=== PATIENT | male | born 1955 | race Caucasian/White ===

== ENCOUNTER → 2023-10-26 06:20 | Outpatient (REF) | payer MEDICARE, OTHER, SELFPAY ==
[2023-10-26 10:04] LABS: % Basophils 0.7 % (0-2); % Eosinophils 6.2 % (0-6); % Immature Granulocytes 0.1 % (0-0.5); % Lymphocytes 25.8 % (20.5-51.1); % Monocytes 11.4 % (1.7-9.3); % Neutrophils 55.8 % (42.2-75.2); Absolute Basophils 0.1 10^3/uL (0-0.2); Absolute Eosinophils 0.5 10^3/uL (0-0.7); Absolute Lymphocytes 1.9 10^3/uL (1.2-3.4); Absolute Monocytes 0.8 10^3/uL (0.1-0.6); Hematocrit 40.6 % (39.0-52.0); Hemoglobin 14.1 g/dL (13.0-18.0); Mean Corp Hgb Conc. 34.7 g/dL (33.0-37.0); Mean Corpuscular Hgb 36.2 pg (27.0-31.0); Mean Corpuscular Volume 104.4 fL (80.0-94.0); Mean Platelet Volume 10.8 fL (7.4-10.4); Nucleated Red Blood Cells % 0 % (-); Platelet Count 171 10^3/uL (130-400); Red Blood Cell Count 3.89 10^6/uL (4.70-6.10); Red Cell Dist. Width 13.5 % (11.5-14.5); White Blood Cell Count 7.2 10^3/uL (4.8-10.8)
[2023-10-26 10:13] LABS: ALT (SGPT) 46 U/L (0-50); AST (SGOT) 54 U/L (17-59); Albumin 2.9 g/dl (3.5-5.0); Alkaline Phosphatase 69 U/L (38-126); Blood Urea Nitrogen 18 mg/dl (9-20); Calcium 8.3 mg/dl (8.4-10.2); Carbon Dioxide 27 mmol/L (22-30); Chloride 102 mmol/L (98-107); Glucose 77 mg/dl (70-99); Potassium 4.8 mmol/L (3.5-5.1); Sodium 130 mmol/L (135-145); Total Bilirubin 0.8 mg/dl (0.2-1.3); Total Protein 5.4 g/dl (6.3-8.2); eGFR > 60.00
[2023-10-26 10:47] LABS: TSH Reflex To Free T4 6.37 uIU/ml (0.47-4.68)
[2023-10-26 11:01] LABS: Protein/creatinine Ratio 0.1; Urine Protein 7 mg/dl
[2023-10-26 11:16] LABS: Free T4 1.09 ng/dl (0.78-2.19)
== END ==
LOC: HWLAB 06:20
PROVIDERS: ATTENDING PHYSICIAN Internal Medicine Hematology & Oncology; FAMILY PHYSICIAN Internal Medicine
DX: C64.2 Malignant neoplasm of left kidney, except renal pelvis (principal); C78.80 Secondary malignant neoplasm of unspecified digestive organ; G90.09 Other idiopathic peripheral autonomic neuropathy; E11.9 Type 2 diabetes mellitus without complications
CPT/HCPCS: 36415; 80053; 82570; 84156; 84439; 84443; 85025

== ENCOUNTER → 2023-11-23 10:22 | Outpatient (REF) | payer MEDICARE, OTHER, SELFPAY ==
[2023-11-23 13:43] LABS: % Basophils 0.4 % (0-2); % Eosinophils 1.4 % (0-6); % Immature Granulocytes 0.5 % (0-0.5); % Lymphocytes 9.7 % (20.5-51.1); % Monocytes 11.6 % (1.7-9.3); % Neutrophils 76.4 % (42.2-75.2); Absolute Eosinophils 0.1 10^3/uL (0-0.7); Absolute Immature Granulocytes 0.1 10^3/uL (0-0.05); Absolute Monocytes 1.2 10^3/uL (0.1-0.6); Absolute Neutrophils 7.6 10^3/uL (1.4-6.5); Hematocrit 36.2 % (39.0-52.0); Hemoglobin 12.8 g/dL (13.0-18.0); Mean Corp Hgb Conc. 35.4 g/dL (33.0-37.0); Mean Corpuscular Hgb 35.4 pg (27.0-31.0); Mean Platelet Volume 9.4 fL (7.4-10.4); Nucleated Red Blood Cells % 0 % (-); Platelet Count 294 10^3/uL (130-400); Red Blood Cell Count 3.62 10^6/uL (4.70-6.10); Red Cell Dist. Width 13.1 % (11.5-14.5); White Blood Cell Count 9.9 10^3/uL (4.8-10.8)
[2023-11-23 13:54] LABS: ALT (SGPT) 68 U/L (0-50); AST (SGOT) 87 U/L (17-59); Albumin 2.4 g/dl (3.5-5.0); Alkaline Phosphatase 95 U/L (38-126); Blood Urea Nitrogen 15 mg/dl (9-20); Calcium 7.9 mg/dl (8.4-10.2); Carbon Dioxide 27 mmol/L (22-30); Chloride 98 mmol/L (98-107); Glucose 86 mg/dl (70-99); Potassium 4.5 mmol/L (3.5-5.1); Sodium 127 mmol/L (135-145); Total Bilirubin 0.9 mg/dl (0.2-1.3); Total Protein 5.2 g/dl (6.3-8.2); eGFR > 60.00
[2023-11-23 14:27] LABS: TSH Reflex To Free T4 3.07 uIU/ml (0.47-4.68)
[2023-11-23 14:30] LABS: Protein/creatinine Ratio 0.2; Urine Protein 11 mg/dl
== END ==
LOC: HWLAB 10:22
PROVIDERS: ATTENDING PHYSICIAN Internal Medicine Hematology & Oncology
DX: C64.2 Malignant neoplasm of left kidney, except renal pelvis (principal); C78.80 Secondary malignant neoplasm of unspecified digestive organ; G90.09 Other idiopathic peripheral autonomic neuropathy; E11.9 Type 2 diabetes mellitus without complications
CPT/HCPCS: 36415; 80053; 82570; 84156; 84443; 85025

== ENCOUNTER → 2023-12-03 07:12 | Outpatient (REF) | payer MEDICARE, OTHER, SELFPAY ==
[2023-12-03 10:04] LABS: % Basophils 0.6 % (0-2); % Eosinophils 2.7 % (0-6); % Immature Granulocytes 0.2 % (0-0.5); % Lymphocytes 19.7 % (20.5-51.1); % Monocytes 9.7 % (1.7-9.3); % Neutrophils 67.1 % (42.2-75.2); Absolute Basophils 0.1 10^3/uL (0-0.2); Absolute Eosinophils 0.2 10^3/uL (0-0.7); Absolute Lymphocytes 1.6 10^3/uL (1.2-3.4); Absolute Monocytes 0.8 10^3/uL (0.1-0.6); Absolute Neutrophils 5.4 10^3/uL (1.4-6.5); Hematocrit 39.7 % (39.0-52.0); Hemoglobin 13.7 g/dL (13.0-18.0); Mean Corp Hgb Conc. 34.5 g/dL (33.0-37.0); Mean Corpuscular Hgb 35.6 pg (27.0-31.0); Mean Corpuscular Volume 103.1 fL (80.0-94.0); Mean Platelet Volume 9.6 fL (7.4-10.4); Nucleated Red Blood Cells % 0 % (-); Platelet Count 378 10^3/uL (130-400); Red Blood Cell Count 3.85 10^6/uL (4.70-6.10); Red Cell Dist. Width 13.7 % (11.5-14.5)
[2023-12-03 10:19] LABS: ALT (SGPT) 60 U/L (0-50); AST (SGOT) 58 U/L (17-59); Albumin 2.8 g/dl (3.5-5.0); Alkaline Phosphatase 90 U/L (38-126); Blood Urea Nitrogen 11 mg/dl (9-20); Calcium 8.5 mg/dl (8.4-10.2); Carbon Dioxide 28 mmol/L (22-30); Chloride 101 mmol/L (98-107); Glucose 101 mg/dl (70-99); Potassium 5.2 mmol/L (3.5-5.1); Sodium 135 mmol/L (135-145); Total Bilirubin 0.5 mg/dl (0.2-1.3); Total Protein 5.7 g/dl (6.3-8.2); eGFR > 60.00
== END ==
LOC: HWLAB 07:12
PROVIDERS: ATTENDING PHYSICIAN Nurse Practitioner Adult Health; FAMILY PHYSICIAN Internal Medicine
DX: C64.2 Malignant neoplasm of left kidney, except renal pelvis (principal); C78.80 Secondary malignant neoplasm of unspecified digestive organ; G90.09 Other idiopathic peripheral autonomic neuropathy
CPT/HCPCS: 36415; 80053; 85025

== ENCOUNTER → 2023-12-21 08:48 | Outpatient (REF) | payer MEDICARE, OTHER, SELFPAY ==
[2023-12-21 12:35] LABS: % Basophils 0.6 % (0-2); % Lymphocytes 26.5 % (20.5-51.1); % Monocytes 10.1 % (1.7-9.3); % Neutrophils 56.8 % (42.2-75.2); Absolute Eosinophils 0.3 10^3/uL (0-0.7); Absolute Lymphocytes 1.3 10^3/uL (1.2-3.4); Absolute Monocytes 0.5 10^3/uL (0.1-0.6); Absolute Neutrophils 2.8 10^3/uL (1.4-6.5); Hematocrit 39.2 % (39.0-52.0); Hemoglobin 13.4 g/dL (13.0-18.0); Mean Corp Hgb Conc. 34.2 g/dL (33.0-37.0); Mean Corpuscular Hgb 35.6 pg (27.0-31.0); Mean Corpuscular Volume 104.3 fL (80.0-94.0); Mean Platelet Volume 11.1 fL (7.4-10.4); Nucleated Red Blood Cells % 0 % (-); Platelet Count 130 10^3/uL (130-400); Red Blood Cell Count 3.76 10^6/uL (4.70-6.10); Red Cell Dist. Width 13.6 % (11.5-14.5); White Blood Cell Count 4.9 10^3/uL (4.8-10.8)
[2023-12-21 12:50] LABS: ALT (SGPT) 39 U/L (0-50); AST (SGOT) 45 U/L (17-59); Albumin 2.5 g/dl (3.5-5.0); Alkaline Phosphatase 68 U/L (38-126); Blood Urea Nitrogen 13 mg/dl (9-20); Calcium 8.4 mg/dl (8.4-10.2); Carbon Dioxide 28 mmol/L (22-30); Chloride 97 mmol/L (98-107); Glucose 91 mg/dl (70-99); Potassium 4.7 mmol/L (3.5-5.1); Sodium 127 mmol/L (135-145); Total Bilirubin 0.6 mg/dl (0.2-1.3); Total Protein 5.1 g/dl (6.3-8.2); eGFR > 60.00
[2023-12-21 13:20] LABS: Protein/creatinine Ratio 0.3; TSH Reflex To Free T4 5.29 uIU/ml (0.47-4.68); Urine Protein 10 mg/dl
[2023-12-21 14:41] LABS: Free T4 0.99 ng/dl (0.78-2.19)
== END ==
LOC: HWLAB 08:48
PROVIDERS: ATTENDING PHYSICIAN Internal Medicine Hematology & Oncology; FAMILY PHYSICIAN Internal Medicine
DX: C64.2 Malignant neoplasm of left kidney, except renal pelvis (principal); C78.80 Secondary malignant neoplasm of unspecified digestive organ; G90.09 Other idiopathic peripheral autonomic neuropathy; E11.9 Type 2 diabetes mellitus without complications
CPT/HCPCS: 36415; 80053; 82570; 84156; 84439; 84443; 85025

== ENCOUNTER → 2024-01-16 07:27 | Outpatient (REF) | payer MEDICARE, OTHER, SELFPAY | LOC: RAD 07:27 | PROVIDERS: ATTENDING PHYSICIAN Internal Medicine Hematology & Oncology; FAMILY PHYSICIAN Internal Medicine | DX: C64.2 Malignant neoplasm of left kidney, except renal pelvis (principal); C78.80 Secondary malignant neoplasm of unspecified digestive organ; G90.09 Other idiopathic peripheral autonomic neuropathy | CPT/HCPCS: 71260; 74177; Q9967 ==

== ENCOUNTER → 2024-01-18 08:19 | Outpatient (REF) | payer MEDICARE, OTHER, SELFPAY ==
[2024-01-18 09:59] LABS: % Basophils 0.7 % (0-2); % Eosinophils 4.1 % (0-6); % Immature Granulocytes 0.2 % (0-0.5); % Monocytes 12.7 % (1.7-9.3); % Neutrophils 54.3 % (42.2-75.2); Absolute Eosinophils 0.3 10^3/uL (0-0.7); Absolute Lymphocytes 1.7 10^3/uL (1.2-3.4); Absolute Monocytes 0.8 10^3/uL (0.1-0.6); Absolute Neutrophils 3.3 10^3/uL (1.4-6.5); Hematocrit 40.9 % (39.0-52.0); Hemoglobin 14.4 g/dL (13.0-18.0); Mean Corp Hgb Conc. 35.2 g/dL (33.0-37.0); Mean Corpuscular Volume 102.3 fL (80.0-94.0); Mean Platelet Volume 10.6 fL (7.4-10.4); Nucleated Red Blood Cells % 0 % (-); Platelet Count 183 10^3/uL (130-400); Red Cell Dist. Width 13.4 % (11.5-14.5)
[2024-01-18 10:06] LABS: Protein/creatinine Ratio 0.4; Urine Protein 11 mg/dl
[2024-01-18 10:10] LABS: ALT (SGPT) 46 U/L (0-50); AST (SGOT) 50 U/L (17-59); Albumin 2.8 g/dl (3.5-5.0); Alkaline Phosphatase 74 U/L (38-126); Blood Urea Nitrogen 12 mg/dl (9-20); Calcium 8.5 mg/dl (8.4-10.2); Carbon Dioxide 28 mmol/L (22-30); Chloride 99 mmol/L (98-107); Glucose 102 mg/dl (70-99); Potassium 4.9 mmol/L (3.5-5.1); Sodium 126 mmol/L (135-145); Total Bilirubin 0.6 mg/dl (0.2-1.3); Total Protein 5.5 g/dl (6.3-8.2); eGFR > 60.00
[2024-01-18 10:41] LABS: TSH Reflex To Free T4 7.38 uIU/ml (0.47-4.68)
[2024-01-18 11:09] LABS: Free T4 1.15 ng/dl (0.78-2.19)
== END ==
LOC: HWLAB 08:19
PROVIDERS: ATTENDING PHYSICIAN Internal Medicine Hematology & Oncology; FAMILY PHYSICIAN Internal Medicine
DX: C64.2 Malignant neoplasm of left kidney, except renal pelvis (principal); C78.80 Secondary malignant neoplasm of unspecified digestive organ; G90.09 Other idiopathic peripheral autonomic neuropathy; E11.9 Type 2 diabetes mellitus without complications
CPT/HCPCS: 36415; 80053; 82570; 84156; 84439; 84443; 85025

== ENCOUNTER → 2024-02-22 07:02 | Outpatient (REF) | payer MEDICARE, OTHER, SELFPAY ==
[2024-02-22 10:42] LABS: ALT (SGPT) 46 U/L (0-50); AST (SGOT) 48 U/L (17-59); Albumin 2.6 g/dl (3.5-5.0); Alkaline Phosphatase 69 U/L (38-126); Blood Urea Nitrogen 21 mg/dl (9-20); Calcium 8.5 mg/dl (8.4-10.2); Carbon Dioxide 28 mmol/L (22-30); Chloride 102 mmol/L (98-107); Glucose 90 mg/dl (70-99); Potassium 4.9 mmol/L (3.5-5.1); Sodium 132 mmol/L (135-145); Total Bilirubin 0.5 mg/dl (0.2-1.3); Total Protein 5.1 g/dl (6.3-8.2); eGFR > 60.00
[2024-02-22 10:53] LABS: TSH Reflex To Free T4 1.57 uIU/ml (0.47-4.68)
[2024-02-22 11:31] LABS: % Basophils 0.8 % (0-2); % Eosinophils 10.2 % (0-6); % Immature Granulocytes 0.2 % (0-0.5); % Lymphocytes 23.1 % (20.5-51.1); % Monocytes 11.6 % (1.7-9.3); % Neutrophils 54.1 % (42.2-75.2); Absolute Basophils 0.1 10^3/uL (0-0.2); Absolute Eosinophils 0.7 10^3/uL (0-0.7); Absolute Lymphocytes 1.5 10^3/uL (1.2-3.4); Absolute Monocytes 0.8 10^3/uL (0.1-0.6); Absolute Neutrophils 3.5 10^3/uL (1.4-6.5); Hematocrit 38.2 % (39.0-52.0); Hemoglobin 13.1 g/dL (13.0-18.0); Mean Corp Hgb Conc. 34.3 g/dL (33.0-37.0); Mean Corpuscular Hgb 35.7 pg (27.0-31.0); Mean Corpuscular Volume 104.1 fL (80.0-94.0); Mean Platelet Volume 10.8 fL (7.4-10.4); Nucleated Red Blood Cells % 0 % (-); Platelet Count 202 10^3/uL (130-400); Red Blood Cell Count 3.67 10^6/uL (4.70-6.10); Red Cell Dist. Width 13.5 % (11.5-14.5); White Blood Cell Count 6.4 10^3/uL (4.8-10.8)
== END ==
LOC: HWLAB 07:02
PROVIDERS: ATTENDING PHYSICIAN Internal Medicine Hematology & Oncology; FAMILY PHYSICIAN Internal Medicine
DX: C64.2 Malignant neoplasm of left kidney, except renal pelvis (principal); C78.80 Secondary malignant neoplasm of unspecified digestive organ; G90.09 Other idiopathic peripheral autonomic neuropathy; E11.9 Type 2 diabetes mellitus without complications
CPT/HCPCS: 36415; 80053; 84443; 85025

== ENCOUNTER → 2024-04-12 07:29 | Outpatient (REF) | payer MEDICARE, OTHER, SELFPAY ==
[2024-04-12 08:58] LABS: % Basophils 0.8 % (0-2); % Eosinophils 4.3 % (0-6); % Immature Granulocytes 0.3 % (0-0.5); % Lymphocytes 20.8 % (20.5-51.1); % Monocytes 13.8 % (1.7-9.3); Absolute Basophils 0.1 10^3/uL (0-0.2); Absolute Eosinophils 0.3 10^3/uL (0-0.7); Absolute Lymphocytes 1.3 10^3/uL (1.2-3.4); Absolute Monocytes 0.8 10^3/uL (0.1-0.6); Absolute Neutrophils 3.6 10^3/uL (1.4-6.5); Hematocrit 32.2 % (39.0-52.0); Mean Corp Hgb Conc. 34.2 g/dL (33.0-37.0); Mean Corpuscular Hgb 36.9 pg (27.0-31.0); Mean Corpuscular Volume 108.1 fL (80.0-94.0); Mean Platelet Volume 10.1 fL (7.4-10.4); Nucleated Red Blood Cells % 0 % (-); Platelet Count 243 10^3/uL (130-400); Red Blood Cell Count 2.98 10^6/uL (4.70-6.10); Red Cell Dist. Width 14.8 % (11.5-14.5)
[2024-04-12 09:28] LABS: ALT (SGPT) 106 U/L (0-50); AST (SGOT) 78 U/L (17-59); Albumin 2.7 g/dl (3.5-5.0); Blood Urea Nitrogen 23 mg/dl (9-20); Calcium 8.5 mg/dl (8.4-10.2); Carbon Dioxide 24 mmol/L (22-30); Glucose 88 mg/dl (70-99); Potassium 5.1 mmol/L (3.5-5.1); Total Bilirubin 0.3 mg/dl (0.2-1.3); Total Cholesterol 88 mg/dl (50-199); Total Protein 4.9 g/dl (6.3-8.2); Triglyceride 75 mg/dl (10-149); Very Low Density Lipoprotein 15 mg/dl (0-30); eGFR > 60.00
[2024-04-12 09:42] LABS: Alkaline Phosphatase 67 U/L (38-126); Chloride 111 mmol/L (98-107); Sodium 139 mmol/L (135-145)
[2024-04-12 09:51] LABS: Microalbumin, Random Urine < 0.6 mg/dl (0.6-1.7)
[2024-04-12 09:57] LABS: TSH 2.02 uIU/ml (0.47-4.68)
[2024-04-12 10:20] LABS: HDL Cholesterol 40 mg/dl; LDL Cholesterol, Calculated 33 mg/dl
[2024-04-12 10:53] LABS: Glycohemoglobin (HgbA1c) 4.9 % (4.0-5.6)
== END ==
LOC: REG 07:29
PROVIDERS: ATTENDING PHYSICIAN Internal Medicine Hematology & Oncology; FAMILY PHYSICIAN Internal Medicine
DX: C64.2 Malignant neoplasm of left kidney, except renal pelvis (principal); C78.80 Secondary malignant neoplasm of unspecified digestive organ; G90.09 Other idiopathic peripheral autonomic neuropathy; E11.22 Type 2 diabetes mellitus with diabetic chronic kidney disease; N18.31 Chronic kidney disease, stage 3a
CPT/HCPCS: 36415; 80053; 80061; 82043; 82570; 83036; 84443; 85025

== ENCOUNTER → 2024-05-09 06:40 | Outpatient (REF) | payer MEDICARE, OTHER, SELFPAY ==
[2024-05-09 09:48] LABS: % Basophils 0.7 % (0-2); % Eosinophils 3.8 % (0-6); % Immature Granulocytes 0.1 % (0-0.5); % Lymphocytes 25.5 % (20.5-51.1); % Monocytes 11.7 % (1.7-9.3); % Neutrophils 58.2 % (42.2-75.2); Absolute Basophils 0.1 10^3/uL (0-0.2); Absolute Eosinophils 0.3 10^3/uL (0-0.7); Absolute Lymphocytes 1.7 10^3/uL (1.2-3.4); Absolute Monocytes 0.8 10^3/uL (0.1-0.6); Absolute Neutrophils 3.9 10^3/uL (1.4-6.5); Hematocrit 39.7 % (39.0-52.0); Hemoglobin 13.8 g/dL (13.0-18.0); Mean Corp Hgb Conc. 34.8 g/dL (33.0-37.0); Mean Corpuscular Hgb 36.9 pg (27.0-31.0); Mean Corpuscular Volume 106.1 fL (80.0-94.0); Mean Platelet Volume 10.3 fL (7.4-10.4); Nucleated Red Blood Cells % 0 % (-); Platelet Count 160 10^3/uL (130-400); Red Blood Cell Count 3.74 10^6/uL (4.70-6.10); Red Cell Dist. Width 13.2 % (11.5-14.5); White Blood Cell Count 6.8 10^3/uL (4.8-10.8)
[2024-05-09 10:01] LABS: ALT (SGPT) 57 U/L (0-50); AST (SGOT) 58 U/L (17-59); Albumin 3.2 g/dl (3.5-5.0); Alkaline Phosphatase 82 U/L (38-126); Blood Urea Nitrogen 22 mg/dl (9-20); Calcium 8.5 mg/dl (8.4-10.2); Carbon Dioxide 27 mmol/L (22-30); Chloride 106 mmol/L (98-107); Glucose 104 mg/dl (70-99); Potassium 4.9 mmol/L (3.5-5.1); Sodium 135 mmol/L (135-145); Total Bilirubin 0.6 mg/dl (0.2-1.3); Total Protein 5.7 g/dl (6.3-8.2); eGFR > 60.00
[2024-05-09 10:32] LABS: TSH Reflex To Free T4 5.37 uIU/ml (0.47-4.68)
[2024-05-09 11:00] LABS: Free T4 0.88 ng/dl (0.78-2.19)
== END ==
LOC: HWLAB 06:40
PROVIDERS: ATTENDING PHYSICIAN Internal Medicine Hematology & Oncology; FAMILY PHYSICIAN Internal Medicine
DX: C64.2 Malignant neoplasm of left kidney, except renal pelvis (principal); C78.80 Secondary malignant neoplasm of unspecified digestive organ; G90.09 Other idiopathic peripheral autonomic neuropathy; E11.9 Type 2 diabetes mellitus without complications
CPT/HCPCS: 36415; 80053; 84439; 84443; 85025

== ENCOUNTER → 2024-06-03 10:05 | Outpatient (REF) | payer MEDICARE, OTHER, SELFPAY | LOC: HWRAD 10:05 | PROVIDERS: ATTENDING PHYSICIAN Internal Medicine Hematology & Oncology; FAMILY PHYSICIAN Internal Medicine | DX: C64.2 Malignant neoplasm of left kidney, except renal pelvis (principal); C78.80 Secondary malignant neoplasm of unspecified digestive organ; G90.09 Other idiopathic peripheral autonomic neuropathy | CPT/HCPCS: 71260; 74177; Q9967 ==

== ENCOUNTER → 2024-06-06 09:59 | Outpatient (REF) | payer MEDICARE, OTHER, SELFPAY ==
[2024-06-06 11:29] LABS: % Basophils 0.6 % (0-2); % Eosinophils 3.8 % (0-6); % Immature Granulocytes 0.2 % (0-0.5); % Monocytes 10.8 % (1.7-9.3); % Neutrophils 62.6 % (42.2-75.2); Absolute Eosinophils 0.3 10^3/uL (0-0.7); Absolute Lymphocytes 1.4 10^3/uL (1.2-3.4); Absolute Monocytes 0.7 10^3/uL (0.1-0.6); Absolute Neutrophils 4.1 10^3/uL (1.4-6.5); Hematocrit 34.8 % (39.0-52.0); Hemoglobin 12.1 g/dL (13.0-18.0); Mean Corp Hgb Conc. 34.8 g/dL (33.0-37.0); Mean Corpuscular Hgb 35.7 pg (27.0-31.0); Mean Corpuscular Volume 102.7 fL (80.0-94.0); Mean Platelet Volume 10.1 fL (7.4-10.4); Nucleated Red Blood Cells % 0 % (-); Platelet Count 152 10^3/uL (130-400); Red Blood Cell Count 3.39 10^6/uL (4.70-6.10); Red Cell Dist. Width 13.7 % (11.5-14.5); White Blood Cell Count 6.6 10^3/uL (4.8-10.8)
[2024-06-06 11:48] LABS: ALT (SGPT) 43 U/L (0-50); AST (SGOT) 46 U/L (17-59); Albumin 2.7 g/dl (3.5-5.0); Alkaline Phosphatase 64 U/L (38-126); Blood Urea Nitrogen 22 mg/dl (9-20); Calcium 8.3 mg/dl (8.4-10.2); Carbon Dioxide 25 mmol/L (22-30); Chloride 108 mmol/L (98-107); Glucose 104 mg/dl (70-99); Potassium 4.8 mmol/L (3.5-5.1); Sodium 140 mmol/L (135-145); Total Bilirubin 0.6 mg/dl (0.2-1.3); Total Protein 5.1 g/dl (6.3-8.2); eGFR 59.84
[2024-06-06 12:13] LABS: TSH Reflex To Free T4 2.49 uIU/ml (0.47-4.68)
== END ==
LOC: HWLAB 09:59
PROVIDERS: ATTENDING PHYSICIAN Internal Medicine Hematology & Oncology; FAMILY PHYSICIAN Internal Medicine
DX: C64.2 Malignant neoplasm of left kidney, except renal pelvis (principal); C78.80 Secondary malignant neoplasm of unspecified digestive organ; G90.09 Other idiopathic peripheral autonomic neuropathy; E11.9 Type 2 diabetes mellitus without complications
CPT/HCPCS: 36415; 80053; 84443; 85025

== ENCOUNTER → 2024-07-14 09:43 | Outpatient (REF) | payer MEDICARE, OTHER, SELFPAY ==
[2024-07-14 11:19] LABS: % Basophils 0.6 % (0-2); % Eosinophils 5.2 % (0-6); % Lymphocytes 26.8 % (20.5-51.1); % Monocytes 13.5 % (1.7-9.3); % Neutrophils 53.9 % (42.2-75.2); Absolute Eosinophils 0.3 10^3/uL (0-0.7); Absolute Lymphocytes 1.3 10^3/uL (1.2-3.4); Absolute Monocytes 0.7 10^3/uL (0.1-0.6); Absolute Neutrophils 2.7 10^3/uL (1.4-6.5); Hematocrit 33.6 % (39.0-52.0); Hemoglobin 11.6 g/dL (13.0-18.0); Mean Corp Hgb Conc. 34.5 g/dL (33.0-37.0); Mean Corpuscular Hgb 37.2 pg (27.0-31.0); Mean Corpuscular Volume 107.7 fL (80.0-94.0); Mean Platelet Volume 10.3 fL (7.4-10.4); Nucleated Red Blood Cells % 0 % (-); Platelet Count 197 10^3/uL (130-400); Red Blood Cell Count 3.12 10^6/uL (4.70-6.10); Red Cell Dist. Width 13.8 % (11.5-14.5)
[2024-07-14 11:26] LABS: ALT (SGPT) 46 U/L (0-50); AST (SGOT) 49 U/L (17-59); Albumin 2.8 g/dl (3.5-5.0); Alkaline Phosphatase 57 U/L (38-126); Blood Urea Nitrogen 18 mg/dl (9-20); Calcium 8.6 mg/dl (8.4-10.2); Carbon Dioxide 25 mmol/L (22-30); Chloride 106 mmol/L (98-107); Glucose 109 mg/dl (70-99); Sodium 137 mmol/L (135-145); Total Bilirubin 0.2 mg/dl (0.2-1.3); Total Protein 5.2 g/dl (6.3-8.2); eGFR 59.84
[2024-07-14 12:55] LABS: TSH Reflex To Free T4 3.08 uIU/ml (0.47-4.68)
== END ==
LOC: HWLAB 09:43
PROVIDERS: ATTENDING PHYSICIAN Internal Medicine Hematology & Oncology; FAMILY PHYSICIAN Internal Medicine
DX: C64.2 Malignant neoplasm of left kidney, except renal pelvis (principal); C78.80 Secondary malignant neoplasm of unspecified digestive organ; G90.09 Other idiopathic peripheral autonomic neuropathy; E11.9 Type 2 diabetes mellitus without complications
CPT/HCPCS: 36415; 80053; 84443; 85025

== ENCOUNTER → 2024-08-11 12:24 | Outpatient (REF) | payer MEDICARE, OTHER, SELFPAY ==
[2024-08-11 15:20] LABS: ALT (SGPT) 45 U/L (0-50); AST (SGOT) 49 U/L (17-59); Albumin 2.6 g/dl (3.5-5.0); Alkaline Phosphatase 59 U/L (38-126); Blood Urea Nitrogen 24 mg/dl (9-20); Calcium 8.1 mg/dl (8.4-10.2); Carbon Dioxide 26 mmol/L (22-30); Chloride 105 mmol/L (98-107); Glucose 118 mg/dl (70-99); Potassium 4.8 mmol/L (3.5-5.1); Sodium 137 mmol/L (135-145); Total Bilirubin 0.5 mg/dl (0.2-1.3); eGFR 54.41
[2024-08-11 15:33] LABS: % Basophils 0.6 % (0-2); % Eosinophils 5.4 % (0-6); % Immature Granulocytes 0.3 % (0-0.5); % Lymphocytes 23.1 % (20.5-51.1); % Monocytes 11.7 % (1.7-9.3); % Neutrophils 58.9 % (42.2-75.2); Absolute Eosinophils 0.3 10^3/uL (0-0.7); Absolute Lymphocytes 1.5 10^3/uL (1.2-3.4); Absolute Monocytes 0.7 10^3/uL (0.1-0.6); Absolute Neutrophils 3.7 10^3/uL (1.4-6.5); Hematocrit 36.7 % (39.0-52.0); Hemoglobin 12.2 g/dL (13.0-18.0); Mean Corp Hgb Conc. 33.2 g/dL (33.0-37.0); Mean Corpuscular Hgb 36.5 pg (27.0-31.0); Mean Corpuscular Volume 109.9 fL (80.0-94.0); Mean Platelet Volume 10.7 fL (7.4-10.4); Nucleated Red Blood Cells % 0 % (-); Platelet Count 156 10^3/uL (130-400); Red Blood Cell Count 3.34 10^6/uL (4.70-6.10); Red Cell Dist. Width 13.4 % (11.5-14.5); White Blood Cell Count 6.4 10^3/uL (4.8-10.8)
[2024-08-11 15:53] LABS: TSH Reflex To Free T4 3.02 uIU/ml (0.47-4.68)
[2024-08-11 15:57] LABS: Protein/creatinine Ratio 0.1; Urine Protein 8 mg/dl
== END ==
LOC: HWLAB 12:24
PROVIDERS: ATTENDING PHYSICIAN Internal Medicine Hematology & Oncology; FAMILY PHYSICIAN Internal Medicine
DX: C64.2 Malignant neoplasm of left kidney, except renal pelvis (principal); C78.80 Secondary malignant neoplasm of unspecified digestive organ; G90.09 Other idiopathic peripheral autonomic neuropathy; E11.9 Type 2 diabetes mellitus without complications
CPT/HCPCS: 36415; 80053; 82570; 84156; 84443; 85025

== ENCOUNTER → 2024-09-08 10:11 | Outpatient (REF) | payer MEDICARE, OTHER, SELFPAY ==
[2024-09-08 11:31] LABS: % Basophils 0.5 % (0-2); % Eosinophils 6.5 % (0-6); % Immature Granulocytes 0.2 % (0-0.5); % Lymphocytes 24.1 % (20.5-51.1); % Monocytes 10.9 % (1.7-9.3); % Neutrophils 57.8 % (42.2-75.2); Absolute Eosinophils 0.4 10^3/uL (0-0.7); Absolute Lymphocytes 1.4 10^3/uL (1.2-3.4); Absolute Monocytes 0.6 10^3/uL (0.1-0.6); Absolute Neutrophils 3.4 10^3/uL (1.4-6.5); Hematocrit 37.5 % (39.0-52.0); Hemoglobin 12.5 g/dL (13.0-18.0); Mean Corp Hgb Conc. 33.3 g/dL (33.0-37.0); Mean Corpuscular Hgb 36.2 pg (27.0-31.0); Mean Corpuscular Volume 108.7 fL (80.0-94.0); Mean Platelet Volume 10.2 fL (7.4-10.4); Nucleated Red Blood Cells % 0 % (-); Platelet Count 142 10^3/uL (130-400); Red Blood Cell Count 3.45 10^6/uL (4.70-6.10); White Blood Cell Count 5.9 10^3/uL (4.8-10.8)
[2024-09-08 12:01] LABS: ALT (SGPT) 41 U/L (0-50); AST (SGOT) 44 U/L (17-59); Albumin 2.6 g/dl (3.5-5.0); Alkaline Phosphatase 56 U/L (38-126); Blood Urea Nitrogen 22 mg/dl (9-20); Calcium 8.3 mg/dl (8.4-10.2); Carbon Dioxide 26 mmol/L (22-30); Chloride 105 mmol/L (98-107); Glucose 78 mg/dl (70-99); Potassium 4.6 mmol/L (3.5-5.1); Sodium 135 mmol/L (135-145); Total Bilirubin 0.4 mg/dl (0.2-1.3); eGFR 59.47
[2024-09-08 12:10] LABS: Protein/creatinine Ratio 0.2; Urine Protein 9 mg/dl
[2024-09-08 12:32] LABS: TSH Reflex To Free T4 4.19 uIU/ml (0.47-4.68)
== END ==
LOC: HWLAB 10:11
PROVIDERS: ATTENDING PHYSICIAN Internal Medicine Hematology & Oncology; FAMILY PHYSICIAN Internal Medicine
DX: C64.2 Malignant neoplasm of left kidney, except renal pelvis (principal); C78.80 Secondary malignant neoplasm of unspecified digestive organ; G90.09 Other idiopathic peripheral autonomic neuropathy; E11.9 Type 2 diabetes mellitus without complications
CPT/HCPCS: 36415; 80053; 82570; 84156; 84443; 85025

== ENCOUNTER → 2024-10-04 09:11 | Outpatient (REF) | payer MEDICARE, OTHER, SELFPAY ==
[2024-10-04 10:21] LABS: % Basophils 0.7 % (0-2); % Eosinophils 7.9 % (0-6); % Immature Granulocytes 0.1 % (0-0.5); % Monocytes 12.4 % (1.7-9.3); % Neutrophils 56.9 % (42.2-75.2); Absolute Basophils 0.1 10^3/uL (0-0.2); Absolute Eosinophils 0.5 10^3/uL (0-0.7); Absolute Lymphocytes 1.5 10^3/uL (1.2-3.4); Absolute Monocytes 0.9 10^3/uL (0.1-0.6); Absolute Neutrophils 3.9 10^3/uL (1.4-6.5); Hematocrit 39.6 % (39.0-52.0); Hemoglobin 13.8 g/dL (13.0-18.0); Mean Corp Hgb Conc. 34.8 g/dL (33.0-37.0); Mean Corpuscular Hgb 36.7 pg (27.0-31.0); Mean Corpuscular Volume 105.3 fL (80.0-94.0); Mean Platelet Volume 10.7 fL (7.4-10.4); Nucleated Red Blood Cells % 0 % (-); Platelet Count 176 10^3/uL (130-400); Red Blood Cell Count 3.76 10^6/uL (4.70-6.10); Red Cell Dist. Width 13.1 % (11.5-14.5); White Blood Cell Count 6.9 10^3/uL (4.8-10.8)
[2024-10-04 10:46] LABS: Protein/creatinine Ratio 0.4; Urine Protein 15 mg/dl
[2024-10-04 11:01] LABS: ALT (SGPT) 46 U/L (0-50); AST (SGOT) 49 U/L (17-59); Albumin 2.8 g/dl (3.5-5.0); Alkaline Phosphatase 73 U/L (38-126); Blood Urea Nitrogen 16 mg/dl (9-20); Calcium 8.4 mg/dl (8.4-10.2); Carbon Dioxide 29 mmol/L (22-30); Chloride 103 mmol/L (98-107); Glucose 117 mg/dl (70-99); Potassium 5.1 mmol/L (3.5-5.1); Sodium 137 mmol/L (135-145); Total Bilirubin 0.8 mg/dl (0.2-1.3); Total Protein 5.2 g/dl (6.3-8.2); eGFR 59.47
[2024-10-04 14:03] LABS: TSH Reflex To Free T4 2.92 uIU/ml (0.47-4.68)
== END ==
LOC: REG 09:11
PROVIDERS: ATTENDING PHYSICIAN Internal Medicine Hematology & Oncology; FAMILY PHYSICIAN Internal Medicine
DX: C64.2 Malignant neoplasm of left kidney, except renal pelvis (principal); C78.80 Secondary malignant neoplasm of unspecified digestive organ; G90.09 Other idiopathic peripheral autonomic neuropathy; E11.9 Type 2 diabetes mellitus without complications
CPT/HCPCS: 36415; 80053; 82570; 84156; 84443; 85025

== ENCOUNTER → 2024-10-21 13:26 | Outpatient (REF) | payer MEDICARE, OTHER, SELFPAY | LOC: RAD 13:26 | PROVIDERS: ATTENDING PHYSICIAN Internal Medicine Hematology & Oncology; FAMILY PHYSICIAN Internal Medicine | DX: C64.2 Malignant neoplasm of left kidney, except renal pelvis (principal); C78.80 Secondary malignant neoplasm of unspecified digestive organ; G90.09 Other idiopathic peripheral autonomic neuropathy | CPT/HCPCS: 71260; 74177; Q9967 ==

== ENCOUNTER → 2024-11-04 09:33 | Outpatient (REF) | payer MEDICARE, OTHER, SELFPAY ==
[2024-11-04 12:08] LABS: % Basophils 0.5 % (0-2); % Eosinophils 5.7 % (0-6); % Immature Granulocytes 0.4 % (0-0.5); % Lymphocytes 14.9 % (20.5-51.1); % Neutrophils 66.5 % (42.2-75.2); Absolute Eosinophils 0.5 10^3/uL (0-0.7); Absolute Lymphocytes 1.2 10^3/uL (1.2-3.4); Absolute Neutrophils 5.3 10^3/uL (1.4-6.5); Hematocrit 34.3 % (39.0-52.0); Hemoglobin 11.5 g/dL (13.0-18.0); Mean Corp Hgb Conc. 33.5 g/dL (33.0-37.0); Mean Corpuscular Hgb 35.7 pg (27.0-31.0); Mean Corpuscular Volume 106.5 fL (80.0-94.0); Mean Platelet Volume 10.4 fL (7.4-10.4); Nucleated Red Blood Cells % 0 % (-); Platelet Count 162 10^3/uL (130-400); Red Blood Cell Count 3.22 10^6/uL (4.70-6.10); Red Cell Dist. Width 13.4 % (11.5-14.5); White Blood Cell Count 7.9 10^3/uL (4.8-10.8)
[2024-11-04 12:32] LABS: ALT (SGPT) 37 U/L (0-50); AST (SGOT) 37 U/L (17-59); Albumin 2.3 g/dl (3.5-5.0); Alkaline Phosphatase 61 U/L (38-126); Blood Urea Nitrogen 23 mg/dl (9-20); Calcium 8.2 mg/dl (8.4-10.2); Carbon Dioxide 26 mmol/L (22-30); Chloride 104 mmol/L (98-107); Glucose 115 mg/dl (70-99); Potassium 5.1 mmol/L (3.5-5.1); Sodium 132 mmol/L (135-145); Total Bilirubin 0.4 mg/dl (0.2-1.3); Total Protein 4.4 g/dl (6.3-8.2); eGFR > 60.00
[2024-11-04 12:47] LABS: TSH Reflex To Free T4 4.66 uIU/ml (0.47-4.68)
== END ==
LOC: HWLAB 09:33
PROVIDERS: ATTENDING PHYSICIAN Internal Medicine Hematology & Oncology; FAMILY PHYSICIAN Internal Medicine
DX: C64.2 Malignant neoplasm of left kidney, except renal pelvis (principal); C78.80 Secondary malignant neoplasm of unspecified digestive organ; G90.09 Other idiopathic peripheral autonomic neuropathy; E11.9 Type 2 diabetes mellitus without complications
CPT/HCPCS: 36415; 80053; 84443; 85025

== ENCOUNTER → 2024-11-26 13:41 | Outpatient (REF) | payer MEDICARE, OTHER, SELFPAY | LOC: HWRCS 13:41 | PROVIDERS: ATTENDING PHYSICIAN Internal Medicine Cardiovascular Disease; FAMILY PHYSICIAN Internal Medicine | DX: I51.9 Heart disease, unspecified (principal) | CPT/HCPCS: 93306 ==

== ENCOUNTER → 2024-12-22 09:31 | Outpatient (REF) | payer MEDICARE, OTHER, SELFPAY | LOC: RAD 09:31 | PROVIDERS: ATTENDING PHYSICIAN Internal Medicine Hematology & Oncology; FAMILY PHYSICIAN Internal Medicine | DX: C64.2 Malignant neoplasm of left kidney, except renal pelvis (principal); C78.80 Secondary malignant neoplasm of unspecified digestive organ; G90.09 Other idiopathic peripheral autonomic neuropathy | CPT/HCPCS: 71260; 74177; Q9967 ==

== ENCOUNTER → 2025-01-16 07:18 | Outpatient (REF) | payer MEDICARE, OTHER, SELFPAY ==
[2025-01-16 09:47] LABS: % Basophils 0.6 % (0-2); % Eosinophils 2.3 % (0-6); % Immature Granulocytes 0.2 % (0-0.5); % Lymphocytes 13.8 % (20.5-51.1); % Monocytes 12.5 % (1.7-9.3); % Neutrophils 70.6 % (42.2-75.2); Absolute Basophils 0.1 10^3/uL (0-0.2); Absolute Eosinophils 0.2 10^3/uL (0-0.7); Absolute Lymphocytes 1.4 10^3/uL (1.2-3.4); Absolute Monocytes 1.2 10^3/uL (0.1-0.6); Hematocrit 40.7 % (39.0-52.0); Hemoglobin 13.7 g/dL (13.0-18.0); Mean Corp Hgb Conc. 33.7 g/dL (33.0-37.0); Mean Corpuscular Hgb 33.7 pg (27.0-31.0); Mean Platelet Volume 10.9 fL (7.4-10.4); Nucleated Red Blood Cells % 0 % (-); Platelet Count 191 10^3/uL (130-400); Red Blood Cell Count 4.07 10^6/uL (4.70-6.10); Red Cell Dist. Width 12.3 % (11.5-14.5); White Blood Cell Count 9.9 10^3/uL (4.8-10.8)
[2025-01-16 09:54] LABS: ALT (SGPT) 53 U/L (0-50); AST (SGOT) 39 U/L (17-59); Albumin 3.6 g/dl (3.5-5.0); Alkaline Phosphatase 68 U/L (38-126); Blood Urea Nitrogen 29 mg/dl (9-20); Calcium 9.5 mg/dl (8.4-10.2); Carbon Dioxide 24 mmol/L (22-30); Chloride 109 mmol/L (98-107); Glucose 109 mg/dl (70-99); HDL Cholesterol 34 mg/dl; LDL Cholesterol, Calculated 33 mg/dl; Potassium 5.1 mmol/L (3.5-5.1); Sodium 142 mmol/L (135-145); Total Bilirubin 0.6 mg/dl (0.2-1.3); Total Cholesterol 89 mg/dl (50-199); Total Protein 6.1 g/dl (6.3-8.2); Triglyceride 113 mg/dl (10-149); Very Low Density Lipoprotein 22 mg/dl (0-30); eGFR 54.41
[2025-01-16 10:05] LABS: Microalbumin, Random Urine 3.7 mg/dl (0.6-1.7); Microalbumin/creatinine Ratio 59.6 mg/g
[2025-01-16 10:21] LABS: TSH Reflex To Free T4 8.53 uIU/ml (0.47-4.68)
[2025-01-16 10:50] LABS: Free T4 0.88 ng/dl (0.78-2.19)
[2025-01-16 11:33] LABS: Glycohemoglobin (HgbA1c) 5.3 % (4.0-5.6)
== END ==
LOC: HWLAB 07:18
PROVIDERS: ATTENDING PHYSICIAN Internal Medicine Hematology & Oncology; FAMILY PHYSICIAN Internal Medicine
DX: C64.2 Malignant neoplasm of left kidney, except renal pelvis (principal); C78.80 Secondary malignant neoplasm of unspecified digestive organ; G90.09 Other idiopathic peripheral autonomic neuropathy; E11.22 Type 2 diabetes mellitus with diabetic chronic kidney disease; N18.31 Chronic kidney disease, stage 3a
CPT/HCPCS: 36415; 80053; 80061; 82043; 82570; 83036; 84439; 84443; 85025

== ENCOUNTER → 2025-01-22 09:27 | Outpatient (REF) | payer MEDICARE, OTHER, SELFPAY | LOC: RAD 09:27 | PROVIDERS: ATTENDING PHYSICIAN Internal Medicine Hematology & Oncology; FAMILY PHYSICIAN Internal Medicine | DX: C64.2 Malignant neoplasm of left kidney, except renal pelvis (principal); C78.80 Secondary malignant neoplasm of unspecified digestive organ; G90.09 Other idiopathic peripheral autonomic neuropathy | CPT/HCPCS: 78306; A9503 ==

== ENCOUNTER → 2025-02-20 10:20 | Outpatient (REF) | payer MEDICARE, OTHER, SELFPAY ==
[2025-02-20 12:46] LABS: Hematocrit 42.7 % (39.0-52.0); Hemoglobin 14.8 g/dL (13.0-18.0); Mean Corp Hgb Conc. 34.7 g/dL (33.0-37.0); Mean Corpuscular Hgb 33.6 pg (27.0-31.0); Mean Corpuscular Volume 96.8 fL (80.0-94.0); Red Blood Cell Count 4.41 10^6/uL (4.70-6.10); Red Cell Dist. Width 12.9 % (11.5-14.5); White Blood Cell Count 5.6 10^3/uL (4.8-10.8)
[2025-02-20 13:06] LABS: Mean Platelet Volume 11.3 fL (7.4-10.4); Platelet Count 91 10^3/uL (130-400)
[2025-02-20 14:49] LABS: ALT (SGPT) 99 U/L (0-50); AST (SGOT) 70 U/L (17-59); Albumin 3.3 g/dl (3.5-5.0); Alkaline Phosphatase 84 U/L (38-126); Blood Urea Nitrogen 19 mg/dl (9-20); Calcium 8.6 mg/dl (8.4-10.2); Carbon Dioxide 29 mmol/L (22-30); Chloride 105 mmol/L (98-107); Glucose 83 mg/dl (70-99); Potassium 5.3 mmol/L (3.5-5.1); Sodium 137 mmol/L (135-145); Total Bilirubin 0.6 mg/dl (0.2-1.3); eGFR > 60.00
[2025-02-20 15:48] LABS: Free T4 0.85 ng/dl (0.78-2.19)
== END ==
LOC: HWLAB 10:20
PROVIDERS: ATTENDING PHYSICIAN Internal Medicine Hematology & Oncology; FAMILY PHYSICIAN Internal Medicine
DX: C64.2 Malignant neoplasm of left kidney, except renal pelvis (principal); C78.80 Secondary malignant neoplasm of unspecified digestive organ; G90.09 Other idiopathic peripheral autonomic neuropathy; E11.9 Type 2 diabetes mellitus without complications
CPT/HCPCS: 36415; 73060; 80053; 84439; 84443; 85025

== ENCOUNTER → 2025-02-23 15:15 | Outpatient (REF) | payer MEDICARE, OTHER, SELFPAY ==
[2025-02-23 15:11] LABS: % Basophils 0.5 % (0-2); % Eosinophils 4.6 % (0-6); % Lymphocytes 29.8 % (20.5-51.1); % Monocytes 11.4 % (1.7-9.3); % Neutrophils 53.7 % (42.2-75.2); Absolute Eosinophils 0.3 10^3/uL (0-0.7); Absolute Lymphocytes 1.9 10^3/uL (1.2-3.4); Absolute Monocytes 0.7 10^3/uL (0.1-0.6); Absolute Neutrophils 3.4 10^3/uL (1.4-6.5); Hematocrit 45.3 % (39.0-52.0); Hemoglobin 15.6 g/dL (13.0-18.0); Mean Corp Hgb Conc. 34.4 g/dL (33.0-37.0); Mean Corpuscular Hgb 32.6 pg (27.0-31.0); Mean Corpuscular Volume 94.6 fL (80.0-94.0); Mean Platelet Volume 10.5 fL (7.4-10.4); Platelet Count 115 10^3/uL (130-400); Red Blood Cell Count 4.79 10^6/uL (4.70-6.10); Red Cell Dist. Width 12.6 % (11.5-14.5); White Blood Cell Count 6.2 10^3/uL (4.8-10.8)
[2025-02-23 16:14] LABS: ALT (SGPT) 98 U/L (0-50); AST (SGOT) 71 U/L (17-59); Albumin 3.8 g/dl (3.5-5.0); Alkaline Phosphatase 91 U/L (38-126); Blood Urea Nitrogen 24 mg/dl (9-20); Calcium 8.9 mg/dl (8.4-10.2); Carbon Dioxide 25 mmol/L (22-30); Chloride 105 mmol/L (98-107); Glucose 86 mg/dl (70-99); Sodium 136 mmol/L (135-145); Total Bilirubin 0.5 mg/dl (0.2-1.3); Total Protein 6.5 g/dl (6.3-8.2); eGFR > 60.00
[2025-02-23 17:11] LABS: Free T4 0.89 ng/dl (0.78-2.19)
[2025-02-23 17:19] LABS: Folate > 20.0 ng/ml (2.76-20); Vitamin B12 > 1000 pg/ml (239-931)
== END ==
LOC: OIDL 15:15
PROVIDERS: ATTENDING PHYSICIAN Internal Medicine Hematology & Oncology
DX: C64.2 Malignant neoplasm of left kidney, except renal pelvis (principal); C78.80 Secondary malignant neoplasm of unspecified digestive organ; G90.09 Other idiopathic peripheral autonomic neuropathy; D51.9 Vitamin B12 deficiency anemia, unspecified; R53.82 Chronic fatigue, unspecified
CPT/HCPCS: 80053; 82607; 82746; 84439; 84443; 85025; 86023

== ENCOUNTER → 2025-03-20 09:33 | Outpatient (REF) | payer MEDICARE, OTHER, SELFPAY ==
[2025-03-20 16:35] LABS: % Basophils 0.3 % (0-2); % Eosinophils 2.3 % (0-6); % Immature Granulocytes 0.4 % (0-0.5); % Lymphocytes 10.5 % (20.5-51.1); % Monocytes 11.6 % (1.7-9.3); % Neutrophils 74.9 % (42.2-75.2); Absolute Eosinophils 0.2 10^3/uL (0-0.7); Absolute Monocytes 1.1 10^3/uL (0.1-0.6); Absolute Neutrophils 7.3 10^3/uL (1.4-6.5); Hematocrit 38.5 % (39.0-52.0); Hemoglobin 13.5 g/dL (13.0-18.0); Mean Corp Hgb Conc. 35.1 g/dL (33.0-37.0); Mean Corpuscular Hgb 33.2 pg (27.0-31.0); Mean Corpuscular Volume 94.6 fL (80.0-94.0); Mean Platelet Volume 9.6 fL (7.4-10.4); Nucleated Red Blood Cells % 0 % (-); Platelet Count 263 10^3/uL (130-400); Red Blood Cell Count 4.07 10^6/uL (4.70-6.10); Red Cell Dist. Width 14.2 % (11.5-14.5); White Blood Cell Count 9.7 10^3/uL (4.8-10.8)
[2025-03-20 16:37] LABS: ALT (SGPT) 53 U/L (0-50); AST (SGOT) 48 U/L (17-59); Albumin 2.9 g/dl (3.5-5.0); Alkaline Phosphatase 82 U/L (38-126); Blood Urea Nitrogen 18 mg/dl (9-20); Calcium 8.4 mg/dl (8.4-10.2); Carbon Dioxide 23 mmol/L (22-30); Chloride 104 mmol/L (98-107); Glucose 119 mg/dl (70-99); Potassium 4.8 mmol/L (3.5-5.1); Sodium 133 mmol/L (135-145); Total Bilirubin 0.8 mg/dl (0.2-1.3); Total Protein 5.8 g/dl (6.3-8.2); eGFR 59.47
[2025-03-20 17:07] LABS: Protein/creatinine Ratio 0.2; Urine Protein 10 mg/dl
[2025-03-20 17:37] LABS: Free T4 1.17 ng/dl (0.78-2.19)
== END ==
LOC: HWLAB 09:33
PROVIDERS: ATTENDING PHYSICIAN Internal Medicine Hematology & Oncology; FAMILY PHYSICIAN Internal Medicine
DX: C64.2 Malignant neoplasm of left kidney, except renal pelvis (principal); C78.80 Secondary malignant neoplasm of unspecified digestive organ; G90.09 Other idiopathic peripheral autonomic neuropathy; E11.9 Type 2 diabetes mellitus without complications
CPT/HCPCS: 36415; 80053; 82525; 82570; 84156; 84439; 84443; 85025

== ENCOUNTER → 2025-04-17 09:41 | Outpatient (REF) | payer MEDICARE, OTHER, SELFPAY ==
[2025-04-17 12:30] LABS: Hematocrit 37.4 % (39.0-52.0); Hemoglobin 12.6 g/dL (13.0-18.0); Mean Corp Hgb Conc. 33.7 g/dL (33.0-37.0); Mean Corpuscular Volume 100.8 fL (80.0-94.0); Platelet Count 121 10^3/uL (130-400); Red Cell Dist. Width 18.2 % (11.5-14.5)
[2025-04-17 12:34] LABS: ALT (SGPT) 46 U/L (0-50); AST (SGOT) 46 U/L (17-59); Albumin 2.8 g/dl (3.5-5.0); Alkaline Phosphatase 76 U/L (38-126); Blood Urea Nitrogen 18 mg/dl (9-20); Calcium 8.1 mg/dl (8.4-10.2); Carbon Dioxide 27 mmol/L (22-30); Chloride 107 mmol/L (98-107); Glucose 153 mg/dl (70-99); Potassium 4.3 mmol/L (3.5-5.1); Sodium 136 mmol/L (135-145); Total Protein 5.5 g/dl (6.3-8.2); eGFR > 60.00
[2025-04-17 13:06] LABS: Nucleated Red Blood Cells % 0 % (-)
== END ==
LOC: HWLAB 09:41
PROVIDERS: ATTENDING PHYSICIAN Internal Medicine Hematology & Oncology; FAMILY PHYSICIAN Internal Medicine
DX: C64.2 Malignant neoplasm of left kidney, except renal pelvis (principal); C78.80 Secondary malignant neoplasm of unspecified digestive organ; G90.09 Other idiopathic peripheral autonomic neuropathy; E11.9 Type 2 diabetes mellitus without complications
CPT/HCPCS: 36415; 80053; 82570; 84156; 84439; 84443; 85025

== ENCOUNTER → 2025-05-12 09:56 | Outpatient (REF) | payer MEDICARE, OTHER, SELFPAY ==
[2025-05-12 10:47] LABS: Hematocrit 34.1 % (39.0-52.0); Hemoglobin 11.8 g/dL (13.0-18.0); Mean Corp Hgb Conc. 34.6 g/dL (33.0-37.0); Mean Corpuscular Volume 103.3 fL (80.0-94.0); Nucleated Red Blood Cells % 0 % (-); Platelet Count 152 10^3/uL (130-400); Red Cell Dist. Width 16.5 % (11.5-14.5)
[2025-05-12 11:14] LABS: ALT (SGPT) 57 U/L (0-50)
[2025-05-12 11:15] LABS: AST (SGOT) 52 U/L (17-59); Albumin 2.7 g/dl (3.5-5.0); Alkaline Phosphatase 63 U/L (38-126); Blood Urea Nitrogen 17 mg/dl (9-20); Calcium 8.7 mg/dl (8.4-10.2); Carbon Dioxide 26 mmol/L (22-30); Chloride 106 mmol/L (98-107); Glucose 106 mg/dl (70-99); Potassium 4.8 mmol/L (3.5-5.1); Sodium 133 mmol/L (135-145); Total Protein 5.2 g/dl (6.3-8.2); eGFR > 60.00
== END ==
LOC: REG 09:56
PROVIDERS: ATTENDING PHYSICIAN Internal Medicine Hematology & Oncology; FAMILY PHYSICIAN Internal Medicine
DX: C64.2 Malignant neoplasm of left kidney, except renal pelvis (principal); C78.80 Secondary malignant neoplasm of unspecified digestive organ; G90.09 Other idiopathic peripheral autonomic neuropathy; E11.9 Type 2 diabetes mellitus without complications
CPT/HCPCS: 36415; 80053; 82570; 84156; 84439; 84443; 85025

== ENCOUNTER → 2025-05-13 13:10 | Outpatient (REF) | payer MEDICARE, OTHER, SELFPAY | LOC: RAD 13:10 | PROVIDERS: ATTENDING PHYSICIAN Internal Medicine Hematology & Oncology; FAMILY PHYSICIAN Internal Medicine | DX: C64.2 Malignant neoplasm of left kidney, except renal pelvis (principal); C78.80 Secondary malignant neoplasm of unspecified digestive organ; G90.09 Other idiopathic peripheral autonomic neuropathy | CPT/HCPCS: 71260; 74177; Q9967 ==

== ENCOUNTER → 2025-08-07 09:33 | Outpatient (REF) | payer MEDICARE, OTHER, SELFPAY ==
[2025-08-07 11:29] LABS: Hematocrit 33.9 % (39.0-52.0); Hemoglobin 11.4 g/dL (13.0-18.0); Mean Corp Hgb Conc. 33.6 g/dL (33.0-37.0); Mean Corpuscular Volume 104.3 fL (80.0-94.0); Nucleated Red Blood Cells % 0 % (-); Platelet Count 202 10^3/uL (130-400); Red Cell Dist. Width 13.7 % (11.5-14.5)
[2025-08-07 11:44] LABS: ALT (SGPT) 42 U/L (0-50); AST (SGOT) 45 U/L (17-59); Albumin 2.3 g/dl (3.5-5.0); Alkaline Phosphatase 59 U/L (38-126); Blood Urea Nitrogen 16 mg/dl (9-20); Calcium 8.1 mg/dl (8.4-10.2); Carbon Dioxide 30 mmol/L (22-30); Chloride 101 mmol/L (98-107); Glucose 92 mg/dl (70-99); Potassium 4.9 mmol/L (3.5-5.1); Sodium 127 mmol/L (135-145); Total Protein 4.7 g/dl (6.3-8.2); eGFR > 60.00
[2025-08-07 12:51] LABS: Folate > 20.0 ng/ml (2.76-20); Vitamin B12 > 1000 pg/ml (239-931)
== END ==
LOC: HWLAB 09:33
PROVIDERS: ATTENDING PHYSICIAN Internal Medicine Hematology & Oncology; FAMILY PHYSICIAN Internal Medicine
DX: C64.2 Malignant neoplasm of left kidney, except renal pelvis (principal); C78.80 Secondary malignant neoplasm of unspecified digestive organ; G90.09 Other idiopathic peripheral autonomic neuropathy; C25.9 Malignant neoplasm of pancreas, unspecified; E11.9 Type 2 diabetes mellitus without complications; Z85.528 Personal history of other malignant neoplasm of kidney
CPT/HCPCS: 36415; 80053; 82570; 82607; 82746; 84156; 84443; 85025

== ENCOUNTER → 2025-08-17 12:30 | Outpatient (REF) | payer MEDICARE, OTHER, SELFPAY | LOC: RAD 12:30 | PROVIDERS: ATTENDING PHYSICIAN Internal Medicine Hematology & Oncology; FAMILY PHYSICIAN Internal Medicine | DX: C64.2 Malignant neoplasm of left kidney, except renal pelvis (principal); C78.80 Secondary malignant neoplasm of unspecified digestive organ | CPT/HCPCS: 71260; 74177; Q9967 ==

== ENCOUNTER 2025-08-24 14:51 | Inpatient (IN) | payer MEDICARE, OTHER, SELFPAY ==
[2025-08-22 21:49] VITALS: BP 144/83
[2025-08-22 23:07] VITALS: BMI 24.5
[2025-08-22 23:15] VITALS: BP 136/72
[2025-08-23] VITALS (11 sets, daily range): BP systolic 88–143; BP diastolic 51–87; BMI 23.0
[2025-08-23] MEDS: MORPHINE SULFATE 4 MG IV (00:42)
[2025-08-23 00:54] LABS: Hematocrit 32.0 % (39.0-52.0); Hemoglobin 11.3 g/dL (13.0-18.0); Mean Corp Hgb Conc. 35.3 g/dL (33.0-37.0); Mean Corpuscular Volume 102.9 fL (80.0-94.0); Nucleated Red Blood Cells % 0 % (-); Platelet Count 215 10^3/uL (130-400); Red Cell Dist. Width 14.4 % (11.5-14.5)
[2025-08-23 01:08] LABS: ALT (SGPT) 39 U/L (0-50); AST (SGOT) 39 U/L (17-59); Albumin 2.2 g/dl (3.5-5.0); Alkaline Phosphatase 65 U/L (38-126); Blood Urea Nitrogen 16 mg/dl (9-20); Calcium 7.7 mg/dl (8.4-10.2); Carbon Dioxide 28 mmol/L (22-30); Chloride 103 mmol/L (98-107); Estimated Creatinine Clearance 75 ml/min; Glucose 94 mg/dl (70-99); Potassium 4.3 mmol/L (3.5-5.1); Sodium 130 mmol/L (135-145); Total Protein 4.7 g/dl (6.3-8.2); eGFR > 60.00
[2025-08-23 01:20] LABS: Troponin I < 0.012 ng/ml
[2025-08-23] MEDS: NSS 500 IV (02:41)
[2025-08-23] MEDS: VALIUM INJECTION 2 MG IV (02:41)
--- NOTE | 2025-08-23 02:42 | ED.GENMED ---
History of Present Illness
<Ely Fonseca PA-C - Last Filed: 08/23/25 17:15>
General
Chief Complaint: Headache
Source: patient
Exam Limitations: none
Time Seen by Provider: 08/23/25 00:11
Nursing documentation reviewed up to this point in time: agreed with
History of Present Illness
History of Present Illness:
Patient is a 70-year-old male with history of metastatic kidney cancer who presents to the emergency department with neck pain. Patient states he got out of bed this morning and was putting on his close when he developed sharp, very severe pain in
his left neck extending from just below his ear down to his hip. He also describes significant pain in his left shoulder and left arm. He denies any known inciting injury or trauma. No recent heavy lifting. He has never had similar pain to this
in the past.
He denies any true headache. He denies any fevers. No numbness/tingling or weakness in extremities. No abdominal pain or midline back pain. No loss of bowel/bladder control.
Of note�patient is currently undergoing treatment for metastatic renal cancer.
Past History
<Ely Fonseca PA-C - Last Filed: 08/23/25 17:15>
Past History
ED Past Medical History: Cancer (Kidney CA, with mets to pancreas, then a brain tumor for which he had radiation 5 treatments. ), NIDDM and Other (Left trigeminal nerve damage); Negative Asthma, HTN or Hypercholesterolemia
ED Past Surgical History: Urological (Left Nephrectomy)
Social History
Tobacco: Non-smoker
Alcohol: None
Personal:
Living: with family
Review of Systems
<Ely Fonseca PA-C - Last Filed: 08/23/25 17:15>
Review of Systems
Allergies reviewed?: Yes
All Other Systems: ROS reviewed and negative except as documented in HPI and ROS
Phy Exam
<Ely Fonseca PA-C - Last Filed: 08/23/25 17:15>
Physical Exam
Physical Exam:
Vitals: Patient's vital signs are stable. Afebrile
General: Patient is very uncomfortable appearing due to pain, moaning
Skin: Warm and dry, no rashes or lesions
Head: Normocephalic, atraumatic
Eyes: Sclera nonicteric. EOMs intact. No nystagmus.
Throat: Protecting airway
Neck: Normal ROM, no cervical spine tenderness, no meningismus. No erythema, warmth, or obvious swelling to neck
Cardiac: Regular rate and rhythm, no murmurs.
Pulm: Normal respiratory effort, no wheezes, rales, rhonchi heard on exam
.
Abdomen: Abdomen soft and nontender.
Back: No midline spinal tenderness. Mild reproducible tenderness in left paralumbar region. No rash or ecchymoses.
Extremities: No evidence of cyanosis or edema. Strength 5/5 in bilateral upper and lower extremities. Sensation intact
Neuro: AAOx3. Grossly intact.
Psychiatric: Normal affect.
Course
<Ely Fonseca PA-C - Last Filed: 08/23/25 17:15>
Orders/Labs/Results
Orders:
Orders
08/23/25 00:27
Morphine Sulfate 4 mg IV NOW STA
08/23/25 00:28
Electrocardiogram (*1) Urgent
Reason for Study: Chest Pain
EKG- Treatment ONCE
08/23/25 00:44
Complete Blood Count/With Diff Urgent
Comprehensive Metabolic Panel Urgent
Troponin I Urgent
08/23/25 01:15
Cervical Spine 4 or 5 Vw [CR Cervical Spine 4 Or 5 Vw] Urgent
Comment:
Reason For Exam: left neck pain
08/23/25 02:14
0.9% Sodium Chloride 500 ml [Nss] 500 ml IV BOLUS
diazePAM [Valium Injection] 2 mg IV NOW STA
08/23/25 02:49
CT Chest/abd/pel Wo Iv Cont Urgent
Comment:
Reason For Exam: L hip pain; metastatic renal CA
08/23/25 03:16
CT Head W/o Iv Contrast Urgent
Comment:
Reason For Exam: pain
08/23/25 Breakfast
Regular
At Your Request: Full Participation
08/23/25 06:04
Admit/Transfer Patient As Directed
Co-Sign Provider:
Level of Care: Observation services
Assign to:: Medical/Surgical
Physician / Group: Jian
Diagnosis: Radicular Pain
08/23/25 06:05
Code Status As Directed
Resuscitation Status: Full Code
PRN Pain Medication Management As Directed
May give lesser potent ordered pain med per pt: Yes
preference::
Protocol:: Medication orders for pain may be administered in a
manner that supports deferring to patient preference
when the pt is:
- Requesting an ordered lesser potent pain medication.
Least to most potent pain medications are defined
as: acetaminophen < NSAID < tramadol < opioids
(morphine, oxycodone, hydromorphone).
- Requesting a lesser dose of the same medication IF
ORDERED.
- Requesting a less intrusive route of administration
if both routes are prescribed by the provider (PO <
IV).
08/23/25 08:05
Carvedilol [Coreg] 3.125 mg PO BID
Doxycycline [Vibramycin] 100 mg PO Q12
Gabapentin [Neurontin] 300 mg PO TID
HYDROmorphone [Dilaudid] 0.5 mg IV Q4HPRN PRN
Levothyroxine [Synthroid] 125 mcg PO DAILY@0600
Ondansetron Injectable [Zofran] 4 mg IV Q6HPRN PRN
Oxycodone [Roxicodone] 5 mg PO Q4HPRN PRN
Polyethylene Glycol Powder [Miralax] 17 grams PO DAILY PRN
08/23/25 08:05
WOUND/OSTOMY CONSULT Routine
Reason for Consult: R Thoracic Wound
MR Cervical Spine Without & W Routine
Comment:
Reason For Exam: Radicular Pain
Recent pill cam endoscopy?: No
Activity As Directed
Activity Level: Ambulate
With Assistance
Bladder Scan As Directed
Follow Bladder Retention/Intermittent Cath Algorithm?: Yes
PRN if no void in __ hours: 6
Frequency: Per Retention Algorithm
If Bladder Scan Result >: 400
then:: Straight cath
I/O [Intake/ Output] As Directed
Frequency: Per unit guidelines
Straight Cath As Directed
Frequency: Per Retention Algorithm
Additional Instructions: straight cath as needed per acute urinary retention algorithm for 24 hrs
Additional Instructions: for bladder scan greater than 400 mL
Vital Signs As Directed
Frequency: Per unit guidelines
Weight As Directed
Frequency: Daily
Oxygen Therapy [O2 Therapy] [RESP] Routine
Titrate/Wean O2 to maintain O2 sat greater than (%): 94
Ot Eval And Treat Routine
PT Consult [Pt Eval And Treat] Routine
Activity Level: Ambulate
With Assistance
DX Deep Vein Thrombosis Video Routine
08/23/25 08:33
Acetaminophen [Tylenol] 1,000 mg PO TID
08/23/25 08:36
Pantoprazole [Protonix] 40 mg PO DAILY
08/23/25 10:00
cabozantinib [Cabometyx] See Dose Instructions PO DAILY
08/23/25 18:00
Atorvastatin [Lipitor] 10 mg PO QPM
Enoxaparin Sodium [Lovenox] 40 mg SC QPM
08/23/25 22:00
Sennosides [Senokot] 17.2 mg PO HS
08/24/25 06:00
Basic Metabolic Panel IN AM
Complete Blood Count/No Diff IN AM
Abnormal Lab Results
08/23/25
00:44
RBC 3.11 L 10^6/uL
(4.70-6.10)
Hgb 11.3 L g/dL
(13.0-18.0)
Hct 32.0 L %
(39.0-52.0)
MCV 102.9 H fL
(80.0-94.0)
MCH 36.3 H pg
(27.0-31.0)
Absolute Monos (auto) 1.3 H 10^3/uL
(0.1-0.6)
Lymphocytes % 14.8 L %
(20.5-51.1)
Monocytes % 15.4 H %
(1.7-9.3)
Sodium 130 L mmol/L
(135-145)
Calcium 7.7 L mg/dl
(8.4-10.2)
Total Protein 4.7 L g/dl
(6.3-8.2)
Albumin 2.2 L g/dl
(3.5-5.0)
08/23/25 00:44
08/23/25 00:44
Vital Signs
Initial and Last Documented VS:
Initial Vital Signs
Temp Pulse Resp BP Pulse Ox
98.2 F 73 16 144/83 97
08/22/25 21:49 08/22/25 21:49 08/22/25 21:49 08/22/25 21:49 08/22/25 21:49
Last Documented Vital Signs
Temp Pulse Resp BP Pulse Ox
97.9 F 59 16 108/60 96
08/23/25 14:59 08/23/25 14:59 08/23/25 14:59 08/23/25 14:59 08/23/25 14:59
<Darian Bach, DO - Last Filed: 08/23/25 02:51>
Orders/Labs/Results
Orders:
Orders
08/23/25 00:27
Morphine Sulfate 4 mg IV NOW STA
08/23/25 00:28
Electrocardiogram (*1) Urgent
Reason for Study: Chest Pain
EKG- Treatment ONCE
08/23/25 00:44
Complete Blood Count/With Diff Urgent
Comprehensive Metabolic Panel Urgent
Troponin I Urgent
08/23/25 01:15
Cervical Spine 4 or 5 Vw [CR Cervical Spine 4 Or 5 Vw] Urgent
Comment:
Reason For Exam: left neck pain
08/23/25 02:14
0.9% Sodium Chloride 500 ml [Nss] 500 ml IV BOLUS
diazePAM [Valium Injection] 2 mg IV NOW STA
08/23/25 02:49
CT Chest/abd/pel Wo Iv Cont Urgent
Comment:
Reason For Exam: L hip pain; metastatic renal CA
08/23/25 03:16
CT Head W/o Iv Contrast Urgent
Comment:
Reason For Exam: pain
08/23/25 Breakfast
Regular
At Your Request: Full Participation
08/23/25 06:04
Admit/Transfer Patient As Directed
Co-Sign Provider:
Level of Care: Observation services
Assign to:: Medical/Surgical
Physician / Group: Jian
Diagnosis: Radicular Pain
08/23/25 06:05
Code Status As Directed
Resuscitation Status: Full Code
PRN Pain Medication Management As Directed
May give lesser potent ordered pain med per pt: Yes
preference::
Protocol:: Medication orders for pain may be administered in a
manner that supports deferring to patient preference
when the pt is:
- Requesting an ordered lesser potent pain medication.
Least to most potent pain medications are defined
as: acetaminophen < NSAID < tramadol < opioids
(morphine, oxycodone, hydromorphone).
- Requesting a lesser dose of the same medication IF
ORDERED.
- Requesting a less intrusive route of administration
if both routes are prescribed by the provider (PO <
IV).
08/23/25 08:05
Carvedilol [Coreg] 3.125 mg PO BID
Doxycycline [Vibramycin] 100 mg PO Q12
Gabapentin [Neurontin] 300 mg PO TID
HYDROmorphone [Dilaudid] 0.5 mg IV Q4HPRN PRN
Levothyroxine [Synthroid] 125 mcg PO DAILY@0600
Ondansetron Injectable [Zofran] 4 mg IV Q6HPRN PRN
Oxycodone [Roxicodone] 5 mg PO Q4HPRN PRN
Polyethylene Glycol Powder [Miralax] 17 grams PO DAILY PRN
08/23/25 08:05
WOUND/OSTOMY CONSULT Routine
Reason for Consult: R Thoracic Wound
MR Cervical Spine Without & W Routine
Comment:
Reason For Exam: Radicular Pain
Recent pill cam endoscopy?: No
Activity As Directed
Activity Level: Ambulate
With Assistance
Bladder Scan As Directed
Follow Bladder Retention/Intermittent Cath Algorithm?: Yes
PRN if no void in __ hours: 6
Frequency: Per Retention Algorithm
If Bladder Scan Result >: 400
then:: Straight cath
I/O [Intake/ Output] As Directed
Frequency: Per unit guidelines
Straight Cath As Directed
Frequency: Per Retention Algorithm
Additional Instructions: straight cath as needed per acute urinary retention algorithm for 24 hrs
Additional Instructions: for bladder scan greater than 400 mL
Vital Signs As Directed
Frequency: Per unit guidelines
Weight As Directed
Frequency: Daily
Oxygen Therapy [O2 Therapy] [RESP] Routine
Titrate/Wean O2 to maintain O2 sat greater than (%): 94
Ot Eval And Treat Routine
PT Consult [Pt Eval And Treat] Routine
Activity Level: Ambulate
With Assistance
DX Deep Vein Thrombosis Video Routine
08/23/25 08:33
Acetaminophen [Tylenol] 1,000 mg PO TID
08/23/25 08:36
Pantoprazole [Protonix] 40 mg PO DAILY
08/23/25 10:00
cabozantinib [Cabometyx] See Dose Instructions PO DAILY
08/23/25 18:00
Atorvastatin [Lipitor] 10 mg PO QPM
Enoxaparin Sodium [Lovenox] 40 mg SC QPM
08/23/25 22:00
Sennosides [Senokot] 17.2 mg PO HS
08/24/25 06:00
Basic Metabolic Panel IN AM
Complete Blood Count/No Diff IN AM
Abnormal Lab Results
08/23/25
00:44
RBC 3.11 L 10^6/uL
(4.70-6.10)
Hgb 11.3 L g/dL
(13.0-18.0)
Hct 32.0 L %
(39.0-52.0)
MCV 102.9 H fL
(80.0-94.0)
MCH 36.3 H pg
(27.0-31.0)
Absolute Monos (auto) 1.3 H 10^3/uL
(0.1-0.6)
Lymphocytes % 14.8 L %
(20.5-51.1)
Monocytes % 15.4 H %
(1.7-9.3)
Sodium 130 L mmol/L
(135-145)
Calcium 7.7 L mg/dl
(8.4-10.2)
Total Protein 4.7 L g/dl
(6.3-8.2)
Albumin 2.2 L g/dl
(3.5-5.0)
08/23/25 00:44
08/23/25 00:44
Vital Signs
Initial and Last Documented VS:
Initial Vital Signs
Temp Pulse Resp BP Pulse Ox
98.2 F 73 16 144/83 97
08/22/25 21:49 08/22/25 21:49 08/22/25 21:49 08/22/25 21:49 08/22/25 21:49
Last Documented Vital Signs
Temp Pulse Resp BP Pulse Ox
97.9 F 59 16 108/60 96
08/23/25 14:59 08/23/25 14:59 08/23/25 14:59 08/23/25 14:59 08/23/25 14:59
<Ely Fonseca PA-C - Last Filed: 08/23/25 17:15>
MDM/Problems Addressed
Differential Diagnosis Includes:
Not limited to: Radicular pain, neuropathic pain, muscular strain/spasm, metastatic spread, renal colic, etc.
MDM/Problems Addressed:
70-year-old male with history of metastatic renal cancer presenting with severe left neck pain radiating to left hip. Started this morning acutely. No recent injury or trauma. No infectious symptoms. No associated neurologic symptoms including
weakness or tingling in extremities.
Vitals as above. On exam, patient appears very uncomfortable due to pain. He has no midline spinal tenderness. Unable to clearly elicit focal area of tenderness in neck or hip. No obvious deformity or skin changes. He has no neurologic deficits
and equal strength with normal sensation in extremities. No carotid bruit.
Impression is likely musculoskeletal or radicular pain. Concern would be relation of metastatic spread given known history of renal cancer. Much lower suspicion for cardiac pathology however will screen with EKG and troponin. Will check basic
labs, treat pain
Patient has had recent CT scan chest, abdomen, pelvis with IV contrast earlier this week without notable abnormalities. Given history of left nephrectomy�do not avoid repeat contrast load. Very low suspicion for dissection as patient has no
neurologic compromise.
Will start with plain films of cervical spine.
Update: Labs unremarkable. Troponin undetectable. Patient still with significant discomfort despite morphine. Will try Valium. Now pain seems more localizing to left hip rather than neck. Discussed with attending physician. Will plan for CT
scan without contrast of chest, abdomen, pelvis to look for possible bony mets/other abnormalities.
Update: CT scan without acute findings. He still has significant discomfort. I still do favor musculoskeletal etiology however patient would likely benefit from MRI imaging for further evaluation to avoid contrast load. Will admit patient for
pain control, and possible further evaluation. Patient accepted to hospitalist
Chronic conditions affecting care:
Metastatic renal cancer
Acute Exacerbation and/or Progression of Chronic Illness:
N/A
<Ely Fonseca PA-C - Last Filed: 08/23/25 17:15>
*Radiology
Radiology exam reviewed: radiology read reviewed
*Pulse Oximetry
SaO2: 95
Oxygen Mode of Delivery: Room air
Patient hypoxic: no
*EKG
Interpreted by ED Provider?: Yes
EKG Intrepretation Date: 08/23/25
Interpretation: abnormal
Comparison EKG: no changes
Heart Rate: 73
Rate: normal
Rhythm: sinus
[place]: normal axis
Interval: normal QT interval
QRS Pattern: left bundle branch block
Ischemia: no ischemia
*Healthcare Project Manager Interpretation
Rate: normal
Interpretation: normal
Heart Rate: 68
Rhythm: sinus
*Critical Care Note
Total Time (30-74mins, 75-104mins- exclusive of procedures): Not Applicable
<Ely Fonseca PA-C - Last Filed: 08/23/25 17:15>
Patient Management
Discussion with other providers: Hospitalist
ED Attending Note
<Ely Fonseca PA-C - Last Filed: 08/23/25 17:15>
-
Portions of this chart may have been created with voice recognition software.� Occasional wrong word or��sound alike� substitutions may have occurred due to the inherent limitations of voice recognition software.
<Darian Bach DO - Last Filed: 08/23/25 02:51>
ED Attending Note
Patient seen and examined by attending physician: Yes
I performed the substantive portion of visit, reviewed & personally made and approve the management plan that is documented in note by myself or ANATOLY.: Yes
ED Attending Note:
Seen with PA examined independently 70-year-old male renal cancer solitary kidney presents with left occiput pain left shoulder pain pain into his left hip felt better after Dilaudid, then developed worsening pain in his left hip, recent CAT scan
report reviewed, cervical spine film noted formal report pending perhaps this is bony metastatic pain?, Versus radicular,? Hesitant to give him any more IV contrast has had contrast recently, and he looks that he does only has 1 kidney
Discharge Plan
Departure
Patient Disposition: Admit
Date of Disposition: 08/23/25
Time of Disposition: 04:13
Presentation/result/management discussed w/ accepting MD/DO: Hospitalist
Discharge Problem:
Intractable pain, Metastatic renal cancer
Interventions
Interventions:
*Risk Screen - Suicide Last Done: 08/22/25 21:49
*General Assessment Last Done: 08/22/25 23:07
*Neglect/Abuse Screening Last Done: 08/22/25 21:49
*ED- Fall Risk Assessment Last Done: 08/22/25 23:07
*ED COVID-19 Vaccine History Last Done: 08/22/25 23:07
*ED Influenza Vaccine History Last Done: 08/22/25 23:07
*Nursing Disposition Last Done: 08/23/25 08:00
ED- Neurological Assessment Last Done: 08/22/25 23:16
Discharge Date and Time
Discharge Date/Time: 08/23/25 08:00
--- NOTE | 2025-08-23 06:48 | HPS.HSE ---
Family Physician
-
Family Physician: Renny Barajas
Chief Complaint
-
Neck Pain
History of Present Illness
Patient is a 70y M with PMH significant for metastatic renal cell carcinoma who presents to ED complaining of L sided neck pain / back pain. Patient states that he woke Sunday AM with sharp, severe pain in the L side of his neck / base of his
skull. This pain radiated down his back to his hip / buttock area. He denies any recent fall, injury, strenuous exercise or new / unusual activity. There was some pain wrapping around anteriorly and occasional pain into the L arm. He denies any
L arm weakness or numbness. He denies any chest pain, dyspnea, N/V, etc. Patient notes that the pain persisted throughout the day and he ultimately presented to the ED for further evaluation.
In the ED patient received one dose of morphine and one dose of Valium. He reportedly had persistent pain and was referred for admission.
He was sleeping when I entered his room but he woke without difficulty.
Patient noted return of pain almost immediately after waking. He notes episodic / spastic moments of pain that are triggered with movement, deep breathing, coughing, etc.
He denies any prior h/o similar symptoms.
Patient had a CT scan done on 08/17 for malignancy follow-up. This did not mention / note any specific bony lesions or metastases or other apparent sources for his pain.
Medical History
Past Medical History
Past Medical History: Reports Other
Additional Past Medical History:
Metastatic Renal Cell Carcinoma
Dyslipidemia
Hypothyroidism
Hypertension
Past Surgical History: Reports Other
Additional Past Surgical History:
Left Nephrectomy / Adrenalectomy
Social History
Tobacco: Non-smoker
Alcohol: None
Drug: None
Family History
Family History: Not pertinent
Allergies / Home Medications
Allergies reflects when Allergies were last updated in [facility].
Home Medications with original date entered in [facility]
Allergy/Medication List:
Allergies
Allergy/AdvReac Type Severity Reaction Status Date / Time
No Known Allergies Allergy Verified 11/25/22 22:20
Home Medications
atorvastatin 10 mg tablet 10 mg PO QPM High cholesterol 04/14/22
cabozantinib 40 mg tablet (Cabometyx) 40 mg PO DAILY Cancer 04/14/22
carvedilol 3.125 mg tablet 3.125 mg PO BID Heart disease/condition 04/14/22
lisinopril 5 mg tablet 5 mg PO BID Blood pressure 04/14/22
omeprazole 20 mg tablet,delayed release 20 mg PO DAILY Gastrointestinal issue 04/14/22
ondansetron 8 mg disintegrating tablet 8 mg PO Q12H PRN nausea 04/14/22
gabapentin 300 mg capsule 300 mg PO TID Neurological Condition 11/23/22
levothyroxine 125 mcg tablet 125 mcg PO DAILY 08/23/25
Review of Systems
-
History Source: Patient
A 12 point ROS was completed and negative except as noted: Yes
Constitutional: Denies Fever or Chills
Respiratory: Denies Cough or Trouble Breathing
Cardiac: Denies Chest Pain or Palpitations
Abdomen/GI: Denies Abdominal Pain, Nausea, Vomiting or Diarrhea
: Denies Dysuria, Frequency or Flank Pain
Musculoskeletal: Reports Other (Neck pain / back pain.); Denies Joint Pain or Edema
Neurological: Denies Dizzy, Weakness or Numbness
Psych: Denies Depression or Anxiety
Physical Exam
Vital Signs
Vital Signs
Temp Pulse Resp BP Pulse Ox
98.2 F 65 20 135/74 96
08/22/25 21:49 08/23/25 05:34 08/23/25 02:00 08/23/25 05:00 08/23/25 05:00
Physical Exam
General: Other (70y M in mild distress episodically due to pain.)
HEENT: Other (Dry MM. Neck supple.)
Respiratory: Clear; No Wheezes, Rales or Rhonchi
Cardiac: S1/S2 and Regular Rhythm; No Murmur
GI: Soft, Non Tender, Non Distended and Normal Bowel Sounds
Musculoskeletal: No Clubbing, No Cyanosis and No Edema
Skin: Other (Nickel sized erythematous and tender skin lesion over the posterior, upper thoracic area. Superficial excoriation / crusting. No bleeding or discharge. )
Neuro: AO x 3 and Nonfocal/grossly intact
Laboratory Results
-
08/23/25 00:44
08/23/25:44
Laboratory Results
Total Bilirubin 0.5 mg/dl (0.2-1.3) 08/23/25:44
AST 39 U/L (17-59) 08/23/25:44
ALT 39 U/L (0-50) 08/23/25:44
Alkaline Phosphatase 65 U/L (38-126) 08/23/25 00:44
Troponin I < 0.012 ng/ml 08/23/25 00:44
Impression/Plan
-
A/P: Patient is a 70y M with PMH significant for metastatic renal cell carcinoma who presents to ED complaining of neck pain / back pain since yesterday AM.
Neck Pain / Radiculopathy
- Observe for further evaluation and treatment.
- History, exam, etc seems most consistent with radicular pain of cervical origin.
- C-spine x-rays show disc space changes / loss at C6-7 level.
- Supportive care with pain control, muscle relaxants, heat applications, etc.
- PT / OT evaluations.
- MRI C-spine and consider SAGE if any targets identified for treatment.
- Recent CT and CT done today do not show any evidence of bony mets or other apparent malignancy-related etiology for his pain.
- Follow for any new / worsening symptoms.
Skin Lesion
- Posterior thoracic lesion appears c.w cutaneous abscess / infected cyst / etc.
- PO doxycycline for now and monitor for any changes.
- Wound Care eval for local care. ? Surgical eval for local I&D if needed.
Metastatic Renal Cell Carcinoma
- Stable. Continue Cabometyx.
- Follow-up with Oncology as an outpatient as scheduled.
Benign Hypertension
- Stable. Continue current medication.
Hypothyroidism
- Stable. Continue T4 replacement.
DVT Prophylaxis: Lovenox
Code Status: Full
[2025-08-23] MEDS: VIBRAMYCIN 100 MG PO ×2 (09:02→19:59)
[2025-08-23] MEDS: NEURONTIN 300 MG PO ×3 (09:03→22:20)
[2025-08-23] MEDS: TYLENOL 1000 MG PO ×3 (09:03→22:20)
[2025-08-23] MEDS: PROTONIX 40 MG PO (09:03)
[2025-08-23] MEDS: COREG 3.125 MG PO (09:04)
[2025-08-23] MEDS: DILAUDID 0.5 MG IV (09:04)
[2025-08-23] MEDS: SYNTHROID 125 MCG PO (09:14)
[2025-08-23] MEDS: NON-FORMULARY ITEM 40 MG PO (10:20)
--- NOTE | 2025-08-23 14:36 | CM ---
Addendum entered by Shira Hull 08/23/25 15:08:
Correction: [employer] form explained to patient; form signed @ 1500
Addendum entered by Shira Hull 08/23/25 15:03:
IMM benefit explained; form signed @ 1500
Original Note:
Met with patient at the bedside
Pharmacy verified: [facility] @ [address] [facility]
Lives w/ daughter and son-in-law; multilevel home; powder room 1st floor
PLOF: independent with personal care; no device with ambulation; uses stair glides in the home; No longer driving
No SNF or Home Health utilization history
Son-in-law will provide transport home
PT recommends Outpatient Therapy; patient does not drive; his daughter does not drive; Home PT is preferred
Plan: Anticipate Discharge to home with home health services when medically stable
[2025-08-23] MEDS: LOVENOX 40 MG SC (17:15)
[2025-08-23] MEDS: LIPITOR 10 MG PO (17:15)
[2025-08-23] MEDS: ROXICODONE 5 MG PO (17:52)
[2025-08-23] MEDS: COREG PO (20:00)
[2025-08-23] MEDS: SENOKOT 17.2 MG PO (22:20)
[2025-08-24] MEDS: SYNTHROID 125 MCG PO (05:38)
[2025-08-24] MEDS: DILAUDID 0.5 MG IV ×2 (05:52→09:53)
[2025-08-24 06:00] VITALS: BMI 22.7
[2025-08-24 06:32] LABS: Hematocrit 33.9 % (39.0-52.0); Hemoglobin 11.9 g/dL (13.0-18.0); Mean Corp Hgb Conc. 35.1 g/dL (33.0-37.0); Mean Corpuscular Volume 104.3 fL (80.0-94.0); Platelet Count 197 10^3/uL (130-400); Red Cell Dist. Width 14.6 % (11.5-14.5)
[2025-08-24 07:08] LABS: Blood Urea Nitrogen 14 mg/dl (9-20); Calcium 7.9 mg/dl (8.4-10.2); Carbon Dioxide 27 mmol/L (22-30); Chloride 105 mmol/L (98-107); Estimated Creatinine Clearance 82 ml/min; Glucose 72 mg/dl (70-99); Potassium 4.3 mmol/L (3.5-5.1); Sodium 129 mmol/L (135-145); eGFR > 60.00
[2025-08-24 08:00] VITALS: BP 144/87
[2025-08-24] MEDS: TYLENOL 1000 MG PO ×3 (09:04→21:51)
[2025-08-24] MEDS: NON-FORMULARY ITEM 40 MG PO (09:04)
[2025-08-24] MEDS: PROTONIX 40 MG PO (09:04)
[2025-08-24] MEDS: VIBRAMYCIN 100 MG PO ×2 (09:05→20:38)
[2025-08-24] MEDS: NEURONTIN 300 MG PO ×3 (09:05→21:51)
[2025-08-24] MEDS: COREG 3.125 MG PO ×2 (09:05→20:38)
--- NOTE | 2025-08-24 09:42 | VATNOTE ---
Called to check IV access. Reportedly leaked. Connection to extension was very loose. Extension tightened and site redressed. Flushed well with 3ml NSS.
--- NOTE | 2025-08-24 11:36 | WOUNDNOTE ---
MID UPPER BACK
[2025-08-24] MEDS: ZOFRAN 4 MG IV (11:39)
--- NOTE | 2025-08-24 11:40 | WOUNDNOTE ---
WO RN note: Patient admitted with intractable pain.
See H&P for complete history. Lives with daughter and family.
PMH: Patient is a 70y M with PMH significant for metastatic renal cell carcinoma who presents to ED complaining of L sided neck pain / back pain. Patient states that he woke Sunday AM with sharp, severe pain in the L side of his neck / base of
his skull. This pain radiated down his back to his hip / buttock area.
Wound Location and type/assessment: Patient admitted with: Asked to see patient for upper mid back lesion. Assessed along with Dr. Ramos at bedside. Upon cleaning small amt of thick cheese like white drainage expressed, painful and blanchable
redness surrounding. Hospitalist will consult surgery for I&D. R elbow abrasion with small opening, scant drainage. L elbow intact. L episcopalian and top of head with suspected cancer type growths, no drainage.
Appetite: Poor, reports patient.
Pressure redistribution devices in place: Accumax, received sitting in chair. Sacrum intact confirmed nurse Derek.
Plan: Local wound care applied to back and R elbow, further wound care orders per surgery.
Will confirm orders with hospitalist and updated nurse.
Updated care plan and will follow as needed.
Note to case management of equipment requested for discharge: TBD.
--- NOTE | 2025-08-24 12:03 | CM ---
Patient seen at bedside
MRI today
[facility]
IMM explained & signed. In chart
PLAN: Home with [facility] when stable
--- NOTE | 2025-08-24 12:38 | PTCARENOTE ---
Report given to RNLeslie. Pt moving to room 316. Care ongoing.
--- NOTE | 2025-08-24 12:45 | VNURNOTE ---
Home Health Liaison met with patient at bedside to discuss [facility] nurse/therapy, visits, schedule and homebound status. Patient is agreeable and understands that visits at home will be 2-3 x per week to assess and teach medical management.
Patient is aware that [facility] will contact them for start of care within a week after discharge from . Provided contact number for [facility].
[facility] referral accepted in [facility].
--- NOTE | 2025-08-24 13:41 | CON.GS ---
Addendum entered and electronically signed by Sebas Michel MD 08/24/25 13:57:
I saw and examined the patient independently.
The Gas Main Fitter's note was reviewed and I agree with the note, assessment and plan except where noted below.
Comment: This is a 70-year-old male with medical history below. General surgery consulted for an infected right upper back cyst. Bedside excision performed. See below for further details.
Wound care: Pack wound wet-to-dry daily until this heals by secondary intention which I anticipate taking roughly 3 weeks. Okay to shower, avoid soaking the incision. No need for antibiotics. Patient to follow-up with me in 2-3 weeks.
Risks/Benefits/Alternatives, expected postoperative course and possible complications (bleeding, infection, injury to surrounding structures, acute/chronic pain) discussed at length. Patient wishes to proceed with surgery. All questions answered.
Verbal consent obtained.
General surgery will sign off, wound care instructions updated.
I spent 50 minutes in total for the care of this patient today including direct patient care and counseling, reviewing labs, imaging, coordination of care, as well as documentation.
Bedside excision
A team time-out was performed confirming the location/laterality of the procedure, consent and allergies reviewed.
Location: Right upper back
Dimensions: 3 x 2 cm
Local: 1% Lidocaine
Interactive Developer: Zahra Hester
The skin was cleaned with alcohol and anesthetized with lidocaine. An elliptical incision was made over the lesion and dissection carried down through subcutaneous tissue. The sebaceous cyst was identified, dissected free with the surrounding
capsule entirely without violation. There was minimal pus. The wound was irrigated with sterile saline. Hemostasis was obtained, with the help of a portable Bovie device. There was minimal blood loss. The skin was packed with gauze and covered with
the Aquacel dressing. No specimens were sent to Pathology/Culture. The patient tolerated the procedure well, discharge instructions reviewed and all questions were answered.
Original Note:
Consultation
-
Date/Time Consultation Performed: 08/24/25 1315
Medical History
-
Chief Complaint: infected cyst
History of Present Illness:
Mr Whitaker is a 70 yo male with a h/o metastatic renal ca s/p left nephrectomy on chemotherapy who presented with left neck pain and was admitted for management of radiculopathy and further work up. On exam, he was noted to have an ulcerated cyst to
his upper back and surgery was consulted for evaluation. The cyst is ulcerated and has been draining with 'cottage cheese' like material noted.
Past Medical History
Past Medical History: Cancer (metastatic renal cell ca), HTN and Hypercholesterolemia
Past Surgical History: Urological (left nephrectomy/adrenalectomy)
Social History
Tobacco: Non-Smoker
Alcohol: None
Allergies / Home Medications
Allergy/AdvReac Type Severity Reaction Status Date / Time
No Known Allergies Allergy Verified 11/25/22 22:20
�Medication �Instructions �Recorded �Confirmed �Type
atorvastatin 10 mg tablet 10 mg PO QPM High cholesterol 04/14/22 08/23/25 History
cabozantinib 40 mg tablet 40 mg PO DAILY Cancer 04/14/22 08/23/25 History
(Cabometyx)
carvedilol 3.125 mg tablet 3.125 mg PO BID Heart 04/14/22 08/23/25 History
disease/condition
lisinopril 5 mg tablet 5 mg PO BID Blood pressure 04/14/22 08/23/25 History
omeprazole 20 mg tablet,delayed 20 mg PO DAILY Gastrointestinal 04/14/22 08/23/25 History
release issue
ondansetron 8 mg disintegrating 8 mg PO Q12H PRN nausea 04/14/22 08/23/25 History
tablet
gabapentin 300 mg capsule 300 mg PO TID Neurological 11/23/22 08/23/25 History
Condition
levothyroxine 125 mcg tablet 125 mcg PO DAILY Thyroid 08/23/25 08/23/25 History
Review of Systems
-
History Source: Patient
All other systems: Negative unless noted
A 10 point review of systems was completed, and was negative except as per HPI.
Physical Exam
Vital Signs
Temp Pulse Resp BP Pulse Ox
98.1 F 82 18 144/87 98
08/24/25 08:00 08/24/25 09:05 08/24/25 08:00 08/24/25 09:05 08/24/25 08:00
08/23/25 08/24/25 08/25/25
06:59 06:59 06:59
Actual Weight 82 kg 75.75 kg
Body Mass Index (BMI) 22.7
Lab Results
08/24/25 06:12
08/24/25 06:12
WBC 8.8 10^3/uL (4.8-10.8) 08/24/25 06:12
Hgb 11.9 g/dL (13.0-18.0) L 08/24/25 06:12
Hct 33.9 % (39.0-52.0) L 08/24/25 06:12
Plt Count 197 10^3/uL (130-400) 08/24/25 06:12
Abs Immat Gran (auto) 0.0 10^3/uL (0-0.05) 08/23/25 00:44
Neutrophils % 63.8 % (42.2-75.2) 08/23/25 00:44
Physical Exam
General: No Apparent Distress
Respiratory: Non Labored Respirations
Skin: Warm and Other (upper back to right of midline there is an ulcerated sebaceous cyst which is actively draining)
Neuro: Awake, Alert and AO x 3
Psych: Calm
Data Reviewed
-
CT Scan: Image Personally Visualized and interpreted, Report Reviewed by me, Discussed with Physician and Discussed with Patient
Labs: Labs Reviewed by me, Discussed with Physician, Discussed with Nurse and Discussed with Family
Old Records: Reviewed
Assessment / Plan
-
Mr Whitaker is a 70 yo male with a h/o metastatic renal ca s/p left nephrectomy on chemotherapy who presented with left neck pain and was admitted for management of radiculopathy and further work up. On exam, he was noted to have an ulcerated cyst to
his upper back and surgery was consulted for evaluation. The cyst is ulcerated and has been draining with 'cottage cheese' like material noted. He is afebrile without leukocytosis. Ct imaging of the chest does show the area, without abscess present.
Plan:
I&D preformed at bedside, see separate procedure note from physician
Daily dressing changes with wet to dry packing with overlying silicone dressing
No purulent material encountered at time of procedure amenable to cx
C/w short course of abx
--- NOTE | 2025-08-24 13:41 | W.PN.HOSP.TC ---
Today's Communication/Plan
-
pain control
Surgery recs
Medrol Dose pack
Assessment / Plan
Assessment / Plan
Physical Exam
General: Other (70y M in mild distress episodically due to pain.)
HEENT: Other (Dry MM. Neck supple.)
Respiratory: Clear; No Wheezes, Rales or Rhonchi
Cardiac: S1/S2 and Regular Rhythm; No Murmur
GI: Soft, Non Tender, Non Distended and Normal Bowel Sounds
Musculoskeletal: No Clubbing, No Cyanosis and No Edema
Skin: Other (Nickel sized erythematous and tender skin lesion over the posterior, upper thoracic area. Superficial excoriation / crusting. No bleeding or discharge. )
Neuro: AO x 3 and Nonfocal/grossly intact
A/P: Patient is a 70y M with PMH significant for metastatic renal cell carcinoma who presents to ED complaining of neck pain / back pain since yesterday AM.
Neck Pain / Radiculopathy
- Observe for further evaluation and treatment.
- History, exam, etc seems most consistent with radicular pain of cervical origin.
- C-spine x-rays show disc space changes / loss at C6-7 level: uncovertebral/facet disease contribute to moderate spinal canal and mild neural foraminal stenosis at this level
-PT/OT
-Pain control
-Trial Medrol pack
-F/u Spine surgery outpatient
Skin Lesion
- Posterior thoracic lesion appears c.w cutaneous abscess / infected cyst / etc.
-Excited by Surgery - no significant pus
- PO doxycycline for now and monitor for any changes.
- Wound care: pack wet to dry daily
-F/u Surgery in 2-3 weeks
Metastatic Renal Cell Carcinoma
- Stable. Continue Cabometyx.
- Follow-up with Oncology as an outpatient as scheduled.
Benign Hypertension
- Stable. Continue current medication.
Hypothyroidism
- Stable. Continue T4 replacement.
DVT Prophylaxis: Lovenox
Code Status: Full
Total time spent on today's encounter was 53 minutes which included time spent in counseling the patient/family regarding diagnosis and treatment plan as listed above, goals of care, and symptom management. Case was discussed with nursing staff,
specialists, and care coordinators/case management. All labs and imaging personally reviewed by me. Remainder the time spent in detailed review of previous records, lab data, imaging, and other medical provider documentation.
Anticipated Discharge: 24 - 48 hours
Subjective/Interval History
-
Date of Service: August 24, 2025
Pain still present
Objective Data
-
Labs:
Laboratory Results
08/24/25
06:12
WBC 8.8
Hgb 11.9 L
Hct 33.9 L
Plt Count 197
Sodium 129 L
Potassium 4.3
Chloride 105
Carbon Dioxide 27
BUN 14
Creatinine 0.9
Glucose 72
Calcium 7.9 L
Vital Signs:
Vital Signs
Temp Pulse Resp BP Pulse Ox
98.1 F 82 18 144/87 98
08/24/25 08:00 08/24/25 09:05 08/24/25 08:00 08/24/25 09:05 08/24/25 08:00
I&O
08/23/25 08/24/25 08/25/25
06:59 06:59 06:59
Intake Total 500 / 500 960 / 960 240 / 240
Output Total 200 / 200 300 / 300
Balance 300 / 300 960 / 960 -60 / -60
Review of Systems
-
History Source: Patient
All other systems: Not reviewed unless documented
Physical Exam
-
General: Well Developed, Well Nourished and No Apparent Distress
HEENT: Normocephalic and Atraumatic
Respiratory: Clear to Auscultation; Negative Wheezes or Rhonchi
Cardiac: Regular Rhythm and S1/S2; Negative Murmur
GI: Soft, Nontender, Nondistended and Normal Bowel Sounds
Musculoskeletal: No Clubbing, No Cyanosis and No Edema
Skin: Warm
Neuro: Awake
Psych: Calm
Data Reviewed
-
MRI: Report Reviewed by me
Labs: Labs Reviewed by me
[2025-08-24 13:50] VITALS: BP 109/68
[2025-08-24] MEDS: MEDROL 24 MG PO (14:09)
[2025-08-24] MEDS: ROXICODONE 5 MG PO (14:10)
--- NOTE | 2025-08-24 15:00 | PTCARENOTE ---
Pt received from [address] [place] [address]- [facility] gotten from VICK[facility] Reed. Pt walked into room from wheelchair with a rolling walker. Pt having pain in middle back. PRN oxycodone administered. Pt resting in bed with call veras in reach. POC ongoing.
[2025-08-24 15:45] VITALS: BP 101/59
[2025-08-24] MEDS: LOVENOX 40 MG SC (17:53)
[2025-08-24] MEDS: LIPITOR 10 MG PO (17:53)
[2025-08-24] MEDS: SENOKOT 17.2 MG PO (21:51)
[2025-08-24 23:00] VITALS: BP 104/65
[2025-08-25 06:00] VITALS: BMI 22.7
[2025-08-25] MEDS: SYNTHROID 125 MCG PO (06:21)
[2025-08-25] MEDS: ROXICODONE 5 MG PO ×3 (06:24→17:08)
[2025-08-25 07:27] LABS: Hematocrit 30.3 % (39.0-52.0); Hemoglobin 10.4 g/dL (13.0-18.0); Mean Corp Hgb Conc. 34.3 g/dL (33.0-37.0); Mean Corpuscular Volume 103.4 fL (80.0-94.0); Platelet Count 220 10^3/uL (130-400); Red Cell Dist. Width 14.5 % (11.5-14.5)
[2025-08-25 07:30] VITALS: BP 111/64
[2025-08-25 07:55] LABS: ALT (SGPT) 35 U/L (0-50); AST (SGOT) 34 U/L (17-59); Albumin 1.9 g/dl (3.5-5.0); Alkaline Phosphatase 66 U/L (38-126); Blood Urea Nitrogen 20 mg/dl (9-20); Calcium 7.8 mg/dl (8.4-10.2); Carbon Dioxide 26 mmol/L (22-30); Chloride 100 mmol/L (98-107); Estimated Creatinine Clearance 67 ml/min; Glucose 84 mg/dl (70-99); Potassium 4.6 mmol/L (3.5-5.1); Sodium 126 mmol/L (135-145); Total Protein 4.3 g/dl (6.3-8.2); eGFR > 60.00
[2025-08-25] MEDS: PROTONIX 40 MG PO (08:50)
[2025-08-25] MEDS: VIBRAMYCIN 100 MG PO ×2 (08:50→20:08)
[2025-08-25] MEDS: COREG 3.125 MG PO ×2 (08:50→20:08)
[2025-08-25] MEDS: NEURONTIN 300 MG PO ×3 (08:50→21:46)
[2025-08-25] MEDS: TYLENOL 1000 MG PO ×3 (08:51→21:46)
[2025-08-25] MEDS: DILAUDID 1 MG IV (08:51)
[2025-08-25] MEDS: NON-FORMULARY ITEM 40 MG PO (08:52)
[2025-08-25] MEDS: MEDROL 20 MG PO (09:27)
--- NOTE | 2025-08-25 10:41 | CM ---
patient seen at bedside
I&D preformed at bedside yesterday
MRI completed
TT from [facility] - LOC change - IMM explained & signed. In chart
Referral in for [facility]
PLAN: Home with [facility] when stable
--- NOTE | 2025-08-25 13:39 | W.PN.HOSP.TC ---
Today's Communication/Plan
-
FR - 50oz/day
abx
medrol pack
Assessment / Plan
Assessment / Plan
Physical Exam
General: Other (70y M in mild distress episodically due to pain.)
HEENT: Other (Dry MM. Neck supple.)
Respiratory: Clear; No Wheezes, Rales or Rhonchi
Cardiac: S1/S2 and Regular Rhythm; No Murmur
GI: Soft, Non Tender, Non Distended and Normal Bowel Sounds
Musculoskeletal: No Clubbing, No Cyanosis and No Edema
Skin: Other (Nickel sized erythematous and tender skin lesion over the posterior, upper thoracic area. Superficial excoriation / crusting. No bleeding or discharge. )
Neuro: AO x 3 and Nonfocal/grossly intact
A/P: Patient is a 70y M with PMH significant for metastatic renal cell carcinoma who presents to ED complaining of neck pain / back pain since yesterday AM.
Neck Pain / Radiculopathy�improved
- Observe for further evaluation and treatment.
- History, exam, etc seems most consistent with radicular pain of cervical origin.
- C-spine x-rays show disc space changes / loss at C6-7 level: uncovertebral/facet disease contribute to moderate spinal canal and mild neural foraminal stenosis at this level
-PT/OT
-Pain control, discontinue Dilaudid and assess
-Trial Medrol pack�improved.
-F/u Spine surgery outpatient
Skin Lesion
- Posterior thoracic lesion appears c.w cutaneous abscess / infected cyst / etc.
-Excited by Surgery - no significant pus
- PO doxycycline for now and monitor for any changes. 5-day course
- Wound care: pack wet to dry daily
-F/u Surgery in 2-3 weeks
Metastatic Renal Cell Carcinoma
- Stable. Continue Cabometyx.
- Follow-up with Oncology as an outpatient as scheduled.
#Hyponatremia
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
� Follow-up Na
-FR - 50oz
-pain control
Benign Hypertension
- Stable. Continue current medication.
Hypothyroidism
- Stable. Continue T4 replacement.
DVT Prophylaxis: Lovenox
Code Status: Full
Anticipated Discharge: 24 - 48 hours
Subjective/Interval History
-
Date of Service: August 25, 2025
Pain greatly improved
Objective Data
-
Labs:
Laboratory Results
08/25/25
06:23
WBC 10.7
Hgb 10.4 L
Hct 30.3 L
Plt Count 220
Sodium 126 L
Potassium 4.6
Chloride 100
Carbon Dioxide 26
BUN 20
Creatinine 1.1
Glucose 84
Calcium 7.8 L
Total Bilirubin 0.4
AST 34
ALT 35
Alkaline Phosphatase 66
Vital Signs:
Vital Signs
Temp Pulse Resp BP Pulse Ox
97.9 F 66 16 111/64 97
08/25/25 07:30 08/25/25 08:50 08/25/25 07:30 08/25/25 08:50 08/25/25 09:31
I&O
08/24/25 08/25/25 08/26/25
06:59 06:59 06:59
Intake Total 960 / 960 1080 / 1080
Output Total 300 / 300
Balance 960 / 960 780 / 780
Review of Systems
-
History Source: Patient
All other systems: Not reviewed unless documented
Data Reviewed
-
MRI: Report Reviewed by me
Labs: Labs Reviewed by me
[2025-08-25 16:00] VITALS: BP 112/60
[2025-08-25] MEDS: LOVENOX 40 MG SC (17:06)
[2025-08-25] MEDS: LIPITOR 10 MG PO (17:06)
[2025-08-25] MEDS: SENOKOT 17.2 MG PO (21:47)
--- NOTE | 2025-08-25 21:49 | PTCARENOTE ---
Pt.was sleep when asked.
--- NOTE | 2025-08-25 21:51 | PTCARENOTE ---
Pt. wants to brush teeth in the morning.
[2025-08-25 23:00] VITALS: BP 114/59
[2025-08-25 23:44] VITALS: BP 114/59
[2025-08-26 06:00] VITALS: BMI 22.8
[2025-08-26] MEDS: SYNTHROID 125 MCG PO (06:34)
[2025-08-26 06:43] LABS: Hematocrit 30.2 % (39.0-52.0); Hemoglobin 11.0 g/dL (13.0-18.0); Mean Corp Hgb Conc. 36.4 g/dL (33.0-37.0); Mean Corpuscular Volume 100.0 fL (80.0-94.0); Platelet Count 236 10^3/uL (130-400); Red Cell Dist. Width 13.8 % (11.5-14.5)
[2025-08-26 07:00] VITALS: BP 130/72
[2025-08-26 07:32] LABS: ALT (SGPT) 34 U/L (0-50); AST (SGOT) 35 U/L (17-59); Albumin 1.9 g/dl (3.5-5.0); Alkaline Phosphatase 69 U/L (38-126); Blood Urea Nitrogen 24 mg/dl (9-20); Calcium 7.8 mg/dl (8.4-10.2); Carbon Dioxide 24 mmol/L (22-30); Chloride 99 mmol/L (98-107); Estimated Creatinine Clearance 74 ml/min; Glucose 91 mg/dl (70-99); Potassium 4.9 mmol/L (3.5-5.1); Sodium 123 mmol/L (135-145); Total Protein 4.3 g/dl (6.3-8.2); eGFR > 60.00
[2025-08-26] MEDS: PROTONIX 40 MG PO (08:11)
[2025-08-26] MEDS: NEURONTIN 300 MG PO ×3 (08:11→21:44)
[2025-08-26] MEDS: TYLENOL 1000 MG PO ×3 (08:11→21:45)
[2025-08-26] MEDS: ROXICODONE 5 MG PO ×2 (08:11→12:44)
[2025-08-26] MEDS: VIBRAMYCIN 100 MG PO ×2 (08:11→20:42)
[2025-08-26] MEDS: COREG 3.125 MG PO ×2 (08:12→20:41)
[2025-08-26] MEDS: MEDROL 16 MG PO (08:13)
[2025-08-26] MEDS: NON-FORMULARY ITEM 40 MG PO (08:14)
[2025-08-26] MEDS: ZOFRAN 4 MG IV (12:23)
[2025-08-26 12:33] VITALS: BP 136/85; BP 138/82; PULSE 66; O2SAT 95
[2025-08-26 12:38] VITALS: BP 136/85; BP 139/82; PULSE 66; O2SAT 95
--- NOTE | 2025-08-26 14:06 | W.PN.HOSP.TC ---
Today's Communication/Plan
-
Nephrology consult - anticipate Tolvaptan
Lidocaine patch in efforts to reduce opiate use
Assessment / Plan
Assessment / Plan
Physical Exam
General: Other (70y M in mild distress episodically due to pain.)
HEENT: Other (Dry MM. Neck supple.)
Respiratory: Clear; No Wheezes, Rales or Rhonchi
Cardiac: S1/S2 and Regular Rhythm; No Murmur
GI: Soft, Non Tender, Non Distended and Normal Bowel Sounds
Musculoskeletal: No Clubbing, No Cyanosis and No Edema
Skin: Other (Nickel sized erythematous and tender skin lesion over the posterior, upper thoracic area. Superficial excoriation / crusting. No bleeding or discharge. )
Neuro: AO x 3 and Nonfocal/grossly intact
A/P: Patient is a 70y M with PMH significant for metastatic renal cell carcinoma who presents to ED complaining of neck pain / back pain since yesterday AM.
Neck Pain / Radiculopathy�improved
- Observe for further evaluation and treatment.
- History, exam, etc seems most consistent with radicular pain of cervical origin.
- C-spine x-rays show disc space changes / loss at C6-7 level: uncovertebral/facet disease contribute to moderate spinal canal and mild neural foraminal stenosis at this level
-PT/OT
-Pain control, discontinue Dilaudid and assess
-Add lidocaine patch
-Trial Medrol pack�improved.
-F/u Spine surgery outpatient
Skin Lesion
- Posterior thoracic lesion appears c.w cutaneous abscess / infected cyst / etc.
-Excited by Surgery - no significant pus
- PO doxycycline for now and monitor for any changes. 5-day course
- Wound care: pack wet to dry daily
-F/u Surgery in 2-3 weeks
Metastatic Renal Cell Carcinoma
- Stable. Continue Cabometyx.
- Follow-up with Oncology as an outpatient as scheduled.
#Hyponatremia
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
� Follow-up Na
-FR - 48oz
-pain control
-Nephrology consulted
-anticipate Samsca
Benign Hypertension
- Stable. Continue current medication.
Hypothyroidism
- Stable. Continue T4 replacement.
DVT Prophylaxis: Lovenox
Code Status: Full
Total time spent on today's encounter was 51 minutes which included time spent in counseling the patient/family regarding diagnosis and treatment plan as listed above, goals of care, and symptom management. Case was discussed with nursing staff,
specialists, and care coordinators/case management. All labs and imaging personally reviewed by me. Remainder the time spent in detailed review of previous records, lab data, imaging, and other medical provider documentation.
Anticipated Discharge: 24 - 48 hours
Subjective/Interval History
-
Date of Service: August 26, 2025
pain under control with oxy; na lower
Objective Data
-
Labs:
Laboratory Results
08/26/25
06:23
WBC 11.6 H
Hgb 11.0 L
Hct 30.2 L
Plt Count 236
Sodium 123 L
Potassium 4.9
Chloride 99
Carbon Dioxide 24
BUN 24 H
Creatinine 1.0
Glucose 91
Calcium 7.8 L
Total Bilirubin 0.3
AST 35
ALT 34
Alkaline Phosphatase 69
Vital Signs:
Vital Signs
Temp Pulse Resp BP Pulse Ox
97.5 F 63 18 130/72 97
08/26/25 07:00 08/26/25 08:12 08/26/25 07:00 08/26/25 08:12 08/26/25 09:25
I&O
08/25/25 08/26/25 08/27/25
06:59 06:59 06:59
Intake Total 1080 / 1080 1460 / 1460
Output Total 300 / 300 625 / 625
Balance 780 / 780 835 / 835
Review of Systems
-
History Source: Patient
All other systems: Not reviewed unless documented
Physical Exam
-
General: Well Developed, Well Nourished and No Apparent Distress
HEENT: Normocephalic and Atraumatic
Respiratory: Clear to Auscultation; Negative Wheezes or Rhonchi
Cardiac: Regular Rhythm and S1/S2; Negative Murmur
GI: Soft, Nontender, Nondistended and Normal Bowel Sounds
Musculoskeletal: No Clubbing, No Cyanosis and No Edema
Skin: Warm
Neuro: Awake
Psych: Calm
Data Reviewed
-
MRI: Report Reviewed by me
Labs: Labs Reviewed by me
[2025-08-26 15:02] VITALS: BP 117/73
[2025-08-26] MEDS: LIDOCAINE 4% PATCH 1 PATCH TOPICAL (15:36)
--- NOTE | 2025-08-26 15:53 | W.CON.NEPH ---
Consultation
-
Date/Time Consultation Requested: 08/26/2025 10 AM
Date/Time Consultation Performed: 08/26/2025 3 PM
Requesting Provider: Dr. Ramos
Performing Provider: Dr. Flores
Reason for Consultation: Hyponatremia
Medical History
-
Chief Complaint: Neck pain
History of Present Illness:
This is a 70-year-old gentleman who has hyperlipidemia controlled with statin therapy, hypertension on a multidrug regimen also stable who has metastatic renal cell carcinoma treated with Cabometyx. He developed sharp left-sided neck pain as well
as pain at the base of the skull acutely on Sunday morning. He says that this pain rated down his back into his hip and buttock area. Because of this persistent pain he ultimately came to emergency room for evaluation. He received morphine as
well as Valium. Labs in the emergency room revealed hyponatremia with a sodium level of 130 which has fallen in the last few days down to 123 for which we are asked to assist with management.
Past Medical History
Metastatic Renal Cell Carcinoma
Dyslipidemia
Hypothyroidism
Hypertension
Left Nephrectomy / Adrenalectomy
Trigeminal neuralgia
Social History
Tobacco: Non-Smoker
Alcohol: None
Family History
Family History: Not Pertinent
Allergies / Home Medications
Allergy/AdvReac Type Severity Reaction Status Date / Time
No Known Allergies Allergy Verified 11/25/22 22:20
�Medication �Instructions �Recorded �Confirmed �Type
atorvastatin 10 mg tablet 10 mg PO QPM High cholesterol 04/14/22 08/23/25 History
cabozantinib 40 mg tablet 40 mg PO DAILY Cancer 04/14/22 08/23/25 History
(Cabometyx)
carvedilol 3.125 mg tablet 3.125 mg PO BID Heart 04/14/22 08/23/25 History
disease/condition
lisinopril 5 mg tablet 5 mg PO BID Blood pressure 04/14/22 08/23/25 History
omeprazole 20 mg tablet,delayed 20 mg PO DAILY Gastrointestinal 04/14/22 08/23/25 History
release issue
ondansetron 8 mg disintegrating 8 mg PO Q12H PRN nausea 04/14/22 08/23/25 History
tablet
gabapentin 300 mg capsule 300 mg PO TID Neurological 11/23/22 08/23/25 History
Condition
levothyroxine 125 mcg tablet 125 mcg PO DAILY Thyroid 08/23/25 08/23/25 History
Physical Exam
Vital Signs
Vital Signs
Temp Pulse Resp BP Pulse Ox
97.4 F 63 18 117/73 97
08/26/25 15:02 08/26/25 15:02 08/26/25 15:02 08/26/25 15:02 08/26/25 15:02
Lab Results
WBC 11.6 10^3/uL (4.8-10.8) H 08/26/25 06:23
RBC 3.02 10^6/uL (4.70-6.10) L 08/26/25 06:23
Hgb 11.0 g/dL (13.0-18.0) L 08/26/25 06:23
Hct 30.2 % (39.0-52.0) L 08/26/25 06:23
Plt Count 236 10^3/uL (130-400) 08/26/25 06:23
Sodium 123 mmol/L (135-145) L 08/26/25 06:23
Potassium 4.9 mmol/L (3.5-5.1) 08/26/25 06:23
Chloride 99 mmol/L (98-107) 08/26/25 06:23
Carbon Dioxide 24 mmol/L (22-30) 08/26/25 06:23
BUN 24 mg/dl (9-20) H 08/26/25 06:23
Creatinine 1.0 mg/dL (0.7-1.3) 08/26/25 06:23
eGFR > 60.00 08/26/25 06:23
Glucose 91 mg/dl (70-99) 08/26/25 06:23
Calcium 7.8 mg/dl (8.4-10.2) L 08/26/25 06:23
Albumin 1.9 g/dl (3.5-5.0) L 08/26/25 06:23
Laboratory Tests
08/25/25
12:08
Urine Osmolality 625
Urine Sodium 46
Laboratory Tests
04/17/25 05/12/25
09:54 10:10
Sodium [address] chest abdomen pelvis without IV contrast 08/23/2025
IMPRESSION:
CHEST:
1. Small left pleural effusion (possibly malignant in etiology).
2. Large airspace consolidation in the basilar left lower lobe. Diagnostic possibilities are (1) left lower lobe pneumonia or (2) left lower lobe atelectasis and scarring.
3. Minimal right pleural effusion.
4. Mild peripheral endobronchial infection in the right upper and lower lobes.
5. Severe calcific atherosclerotic plaque in the coronary arteries.
6. Mild cardiomegaly.
ABDOMEN and PELVIS:
1. MODERATE RIGHT PERINEPHRIC INFLAMMATION which appears increased since 08/17/2025 (possibly acute right pyelonephritis).
2. 3.2 cm MALIGNANT MASS in the PANCREATIC BODY (either a metastasis or primary pancreatic cancer).
3. Small number of low-attenuation lesions in the liver (possibly hepatic metastases).
4. 4.6 cm metastasis in the right adrenal gland.
5. Previous left nephrectomy and adrenalectomy.
6. Moderate diffusely increased attenuation throughout the liver suggesting iron deposition (hemachromatosis) or chronic amiodarone therapy.
7. Mild diffuse fluid distention of the small bowel.
8. Moderately enlarged prostate gland.
9. Mild diffuse urinary bladder wall thickening and distention suggesting chronic outlet obstruction.
10. Severe discogenic degenerative disease at L5/S1.
Physical Exam
Patient is awake alert oriented and in no distress. Mood and affect were pleasant, insight and judgment were good. Pupils are equal round and reactive to light, extraocular movements are intact, sclera were anicteric. Hearing was normal, ears and
nose are intact. Oropharynx was clear. Neck was supple with trachea midline and no thyromegaly. Heart was regular rate and rhythm without rubs. Lower extremities without edema. Lungs were clear to auscultation bilaterally and with normal
excursion. Abdomen was soft, nontender, with normal active bowel sounds, and no hepatosplenomegaly. Skin was without rash and with normal turgor.
Data Reviewed
-
Radiology: Image Personally Visualized and interpreted (EKG 08/23/2025 by my reading normal sinus rhythm left bundle branch block)
MRI: Report Reviewed by me (MRI cervical spine 08/24/2025 with multilevel degenerative changes)
Labs: Labs Reviewed by me
Old Records: Reviewed
Assessment/Plan
-
Assessment
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
Acute hyponatremia
Pancreatic mass
Left lower lobe consolidation
Left nephrectomy, solitary right kidney
Hypertension
Neck pain
Plan
tolvaptan 7.5mg po today
follow BMP
Fluid restriction 40 ounces
Encourage oral intake which she has issues given history of left-sided trigeminal neuralgia and jaw issues subsequent
[2025-08-26] MEDS: LIPITOR 10 MG PO (17:01)
[2025-08-26] MEDS: SAMSCA 7.5 MG PO (17:01)
[2025-08-26] MEDS: LOVENOX 40 MG SC (17:01)
[2025-08-26] MEDS: REMOVE LIDOCAINE PATCH 1 PATCH REMOVE (20:41)
[2025-08-26] MEDS: SENOKOT 17.2 MG PO (21:45)
[2025-08-26 21:50] VITALS: BP 141/83
[2025-08-26 23:38] VITALS: BP 148/80
[2025-08-27 03:06] VITALS: BMI 22.7
[2025-08-27] MEDS: ROXICODONE 5 MG PO ×4 (03:07→17:28)
[2025-08-27] MEDS: SYNTHROID 125 MCG PO (05:59)
[2025-08-27 07:08] LABS: Hematocrit 33.7 % (39.0-52.0); Hemoglobin 12.0 g/dL (13.0-18.0); Mean Corp Hgb Conc. 35.6 g/dL (33.0-37.0); Mean Corpuscular Volume 99.1 fL (80.0-94.0); Platelet Count 274 10^3/uL (130-400); Red Cell Dist. Width 14.2 % (11.5-14.5)
[2025-08-27 07:28] VITALS: BP 152/86
[2025-08-27 07:51] LABS: ALT (SGPT) 40 U/L (0-50); AST (SGOT) 40 U/L (17-59); Albumin 2.0 g/dl (3.5-5.0); Alkaline Phosphatase 74 U/L (38-126); Blood Urea Nitrogen 28 mg/dl (9-20); Calcium 8.2 mg/dl (8.4-10.2); Carbon Dioxide 25 mmol/L (22-30); Chloride 102 mmol/L (98-107); Estimated Creatinine Clearance 74 ml/min; Glucose 76 mg/dl (70-99); Potassium 5.1 mmol/L (3.5-5.1); Sodium 127 mmol/L (135-145); Total Protein 4.7 g/dl (6.3-8.2); eGFR > 60.00
[2025-08-27] MEDS: LIDOCAINE 4% PATCH 1 PATCH TOPICAL (08:43)
[2025-08-27] MEDS: NEURONTIN 300 MG PO ×3 (08:43→21:21)
[2025-08-27] MEDS: COREG 3.125 MG PO ×2 (08:43→20:25)
[2025-08-27] MEDS: TYLENOL 1000 MG PO ×3 (08:43→21:21)
[2025-08-27] MEDS: PROTONIX 40 MG PO (08:44)
[2025-08-27] MEDS: NON-FORMULARY ITEM 40 MG PO (08:44)
[2025-08-27] MEDS: VIBRAMYCIN 100 MG PO ×2 (08:44→20:25)
[2025-08-27] MEDS: MEDROL 12 MG PO (08:45)
--- NOTE | 2025-08-27 11:55 | W.PN.NEPH.PH ---
Today's Communication / Plan
-
follow BMP
Assessment/Plan
-
Assessment
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
Acute hyponatremia
Pancreatic mass
Left lower lobe consolidation
Left nephrectomy, solitary right kidney
Hypertension
Neck pain
Plan
no samsca today
follow BMP
Fluid restriction 40 ounces
Encourage solid oral intake which she has issues given history of left-sided trigeminal neuralgia and jaw issues subsequent
pain control per primary team
-
-
Date of Service: August 27, 2025
CC / HPI / ROS
-
Chief Complaint:
hyponatremia
History of Present Illness:
Na up to 127 with samsca
BP high stable
pain uncontrolled left side
Review of Systems:
no CP/SOB
Labs
-
Labs:
WBC 8.3 10^3/uL (4.8-10.8) 08/27/25 06:49
RBC 3.40 10^6/uL (4.70-6.10) L 08/27/25 06:49
Hgb 12.0 g/dL (13.0-18.0) L 08/27/25 06:49
Hct 33.7 % (39.0-52.0) L 08/27/25 06:49
Plt Count 274 10^3/uL (130-400) 08/27/25 06:49
Sodium 127 mmol/L (135-145) L 08/27/25 06:49
Potassium 5.1 mmol/L (3.5-5.1) 08/27/25 06:49
Chloride 102 mmol/L (98-107) 08/27/25 06:49
Carbon Dioxide 25 mmol/L (22-30) 08/27/25 06:49
BUN 28 mg/dl (9-20) H 08/27/25 06:49
Creatinine 1.0 mg/dL (0.7-1.3) 08/27/25 06:49
eGFR > 60.00 08/27/25 06:49
Glucose 76 mg/dl (70-99) 08/27/25 06:49
Calcium 8.2 mg/dl (8.4-10.2) L 08/27/25 06:49
Albumin 2.0 g/dl (3.5-5.0) L 08/27/25 06:49
Physical Exam
-
Vital Signs:
Vital Signs
Temp Pulse Resp BP Pulse Ox
97.1 F 70 16 152/86 98
08/27/25 07:28 08/27/25 07:28 08/27/25 07:28 08/27/25 07:28 08/27/25 07:28
Cardiovascular:: Regular rate and rhythm
Respiratory:: Bilateral: CTA
Lung Excursion:: Normal
Abdomen:: Nontender and Soft
Bowel Sounds:: Normal
Extremity Edema:: None: Bilateral:
--- NOTE | 2025-08-27 13:29 | W.PN.HOSP.TC ---
Today's Communication/Plan
-
monitor Na
pain control
medrol pack
Assessment / Plan
Assessment / Plan
Physical Exam
General: Other (70y M in mild distress episodically due to pain.)
HEENT: Other (Dry MM. Neck supple.)
Respiratory: Clear; No Wheezes, Rales or Rhonchi
Cardiac: S1/S2 and Regular Rhythm; No Murmur
GI: Soft, Non Tender, Non Distended and Normal Bowel Sounds
Musculoskeletal: No Clubbing, No Cyanosis and No Edema
Skin: Other (Nickel sized erythematous and tender skin lesion over the posterior, upper thoracic area. Superficial excoriation / crusting. No bleeding or discharge. )
Neuro: AO x 3 and Nonfocal/grossly intact
A/P: Patient is a 70y M with PMH significant for metastatic renal cell carcinoma who presents to ED complaining of neck pain / back pain since yesterday AM.
Neck Pain / Radiculopathy�improved
- Observe for further evaluation and treatment.
- History, exam, etc seems most consistent with radicular pain of cervical origin.
- C-spine x-rays show disc space changes / loss at C6-7 level: uncovertebral/facet disease contribute to moderate spinal canal and mild neural foraminal stenosis at this level
-PT/OT
-Pain control, discontinue Dilaudid and assess
-Add lidocaine patch
-Trial Medrol pack�improved.
-F/u Spine surgery outpatient
Skin Lesion
- Posterior thoracic lesion appears c.w cutaneous abscess / infected cyst / etc.
-Excited by Surgery - no significant pus
- PO doxycycline for now and monitor for any changes. 5-day course
- Wound care: pack wet to dry daily
-F/u Surgery in 2-3 weeks
Metastatic Renal Cell Carcinoma
- Stable. Continue Cabometyx.
- Follow-up with Oncology as an outpatient as scheduled.
#Hyponatremia
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
� Follow-up Na
-FR - 48oz
-pain control
-Nephrology consulted
-[facility] - 08/26 - holding today
Benign Hypertension
- Stable. Continue current medication.
Hypothyroidism
- Stable. Continue T4 replacement.
DVT Prophylaxis: Lovenox
Code Status: Full
Anticipated Discharge: 24 - 48 hours
Subjective/Interval History
-
Date of Service: August 27, 2025
No events overnight
Objective Data
-
Labs:
Laboratory Results
08/27/25
06:49
WBC 8.3
Hgb 12.0 L
Hct 33.7 L
Plt Count 274
Sodium 127 L
Potassium 5.1
Chloride 102
Carbon Dioxide 25
BUN 28 H
Creatinine 1.0
Glucose 76
Calcium 8.2 L
Total Bilirubin 0.5
AST 40
ALT 40
Alkaline Phosphatase 74
Vital Signs:
Vital Signs
Temp Pulse Resp BP Pulse Ox
97.1 F 70 16 152/86 98
08/27/25 07:28 08/27/25 07:28 08/27/25 07:28 08/27/25 07:28 08/27/25 07:28
I&O
08/26/25 08/27/25 08/28/25
06:59 06:59 06:59
Intake Total 1460 / 1460 840 / 840
Output Total 625 / 625 1100 / 1100
Balance 835 / 835 -260 / -260
Review of Systems
-
History Source: Patient
All other systems: Not reviewed unless documented
Physical Exam
-
General: Well Developed, Well Nourished and No Apparent Distress
HEENT: Normocephalic and Atraumatic
Respiratory: Clear to Auscultation; Negative Wheezes or Rhonchi
Cardiac: Regular Rhythm and S1/S2; Negative Murmur
GI: Soft, Nontender, Nondistended and Normal Bowel Sounds
Musculoskeletal: No Clubbing, No Cyanosis and No Edema
Skin: Warm
Neuro: Awake
Psych: Calm
Data Reviewed
-
MRI: Report Reviewed by me
Labs: Labs Reviewed by me
--- NOTE | 2025-08-27 14:57 | CM ---
Patient seen at bedside
referral in [facility] for [facility]-accepted
PLAN: home with [facility] when stable
[2025-08-27 15:14] VITALS: BP 141/73
[2025-08-27 15:59] VITALS: BP 130/75; PULSE 64
[2025-08-27 16:06] VITALS: BP 130/75; PULSE 64
[2025-08-27] MEDS: LIPITOR 10 MG PO (17:24)
[2025-08-27] MEDS: LOVENOX 40 MG SC (17:25)
[2025-08-27] MEDS: REMOVE LIDOCAINE PATCH 1 PATCH REMOVE (20:25)
[2025-08-27] MEDS: SENOKOT 17.2 MG PO (21:20)
[2025-08-27 23:00] VITALS: BP 127/73
[2025-08-28 06:00] VITALS: BMI 21.8
[2025-08-28] MEDS: SYNTHROID 125 MCG PO (06:08)
[2025-08-28] MEDS: ROXICODONE 5 MG PO (06:08)
[2025-08-28 07:35] VITALS: BP 159/85
[2025-08-28] MEDS: LIDOCAINE 4% PATCH 1 PATCH TOPICAL (07:51)
[2025-08-28] MEDS: NON-FORMULARY ITEM 40 MG PO (07:51)
[2025-08-28] MEDS: PROTONIX 40 MG PO (07:52)
[2025-08-28] MEDS: TYLENOL 1000 MG PO ×2 (07:52→15:57)
[2025-08-28] MEDS: COREG 3.125 MG PO (07:52)
[2025-08-28] MEDS: VIBRAMYCIN 100 MG PO (07:52)
[2025-08-28] MEDS: NEURONTIN 300 MG PO ×2 (07:52→15:57)
[2025-08-28] MEDS: MEDROL 8 MG PO (07:56)
[2025-08-28 08:07] LABS: ALT (SGPT) 44 U/L (0-50); AST (SGOT) 50 U/L (17-59); Albumin 2.1 g/dl (3.5-5.0); Alkaline Phosphatase 85 U/L (38-126); Blood Urea Nitrogen 29 mg/dl (9-20); Calcium 8.1 mg/dl (8.4-10.2); Carbon Dioxide 26 mmol/L (22-30); Chloride 104 mmol/L (98-107); Estimated Creatinine Clearance 64 ml/min; Glucose 72 mg/dl (70-99); Potassium 5.0 mmol/L (3.5-5.1); Sodium 130 mmol/L (135-145); Total Protein 4.8 g/dl (6.3-8.2); eGFR > 60.00
[2025-08-28 08:14] LABS: Hematocrit 34.9 % (39.0-52.0); Hemoglobin 12.7 g/dL (13.0-18.0); Mean Corp Hgb Conc. 36.4 g/dL (33.0-37.0); Mean Corpuscular Volume 100.3 fL (80.0-94.0); Platelet Count 290 10^3/uL (130-400); Red Cell Dist. Width 14.2 % (11.5-14.5)
[2025-08-28] MEDS: ZOFRAN 4 MG IV (09:39)
[2025-08-28] MEDS: ULTRAM 25 MG PO (12:16)
[2025-08-28 12:21] VITALS: BP 141/87; PULSE 66; O2SAT 97
--- NOTE | 2025-08-28 13:16 | W.PN.HOSP.TC ---
Addendum entered and electronically signed by Antione Ramos MD 08/28/25 16:40:
[id number]
Addendum entered and electronically signed by Antione Ramos MD 08/28/25 13:43:
no need for ua - no urinary issues or flank pain
Original Note:
Today's Communication/Plan
-
dc on tramadol
F/u PCP, Onc, Nephro, Pain, Ortho spine outpt
F/u UA
repeat imaging outpatient as per Onc
F/u bmp closely
Assessment / Plan
Assessment / Plan
Physical Exam
General: Other (70y M in mild distress episodically due to pain.)
HEENT: Other (Dry MM. Neck supple.)
Respiratory: Clear; No Wheezes, Rales or Rhonchi
Cardiac: S1/S2 and Regular Rhythm; No Murmur
GI: Soft, Non Tender, Non Distended and Normal Bowel Sounds
Musculoskeletal: No Clubbing, No Cyanosis and No Edema
Skin: Other (Nickel sized erythematous and tender skin lesion over the posterior, upper thoracic area. Superficial excoriation / crusting. No bleeding or discharge. )
Neuro: AO x 3 and Nonfocal/grossly intact
A/P: Patient is a 70y M with PMH significant for metastatic renal cell carcinoma who presents to ED complaining of neck pain / back pain since yesterday AM.
Neck Pain / Radiculopathy�improved
- Observe for further evaluation and treatment.
- History, exam, etc seems most consistent with radicular pain of cervical origin.
- C-spine x-rays show disc space changes / loss at C6-7 level: uncovertebral/facet disease contribute to moderate spinal canal and mild neural foraminal stenosis at this level
-PT/OT
-Pain control, tramadol
-Add lidocaine patch
-Trial Medrol pack�improved. - complete dosing at home
-F/u Spine surgery outpatient
-F/u Pain management outpt
Skin Lesion
- Posterior thoracic lesion appears c.w cutaneous abscess / infected cyst / etc.
-Excited by Surgery - no significant pus
- PO doxycycline for now and monitor for any changes. 5-day course
- Wound care: pack wet to dry daily
-F/u Surgery in 2-3 weeks
#?Pulmonary and abdominal infection including renal
-no obvious pain, febrile episodes, hemodynamic instability, chills to indicate infection; no urinary issues; - most likely related to cancer
-f/u closely outpt
-F/u UA
Shoulder pain
-likely related to arthritis v bone
Metastatic Renal Cell Carcinoma
- Stable. Continue Cabometyx.
- Follow-up with Oncology as an outpatient as scheduled.
#Hyponatremia
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
� Follow-up Na
-FR - 48oz
-pain control
-Nephrology consulted
-[facility] [place] - 08/26 - improved
F/u BMP and nephro f/u outpt
#Benign Hypertension
- Stable. Continue current medication.
Hypothyroidism
- Stable. Continue T4 replacement.
DVT Prophylaxis: Lovenox
Code Status: Full
More than 30 minutes spent in discharge including
Final examination of the patient
Summarizing hospital stay
Instructions for continuing care to all relevant caregivers
Preparation of discharge records, prescriptions, and referral forms
Total time spent (in minutes): 37
Anticipated Discharge: Today
Subjective/Interval History
-
Date of Service: August 28, 2025
pain improved
Objective Data
-
Labs:
Laboratory Results
08/28/25
07:03
WBC 8.2
Hgb 12.7 L
Hct 34.9 L
Plt Count 290
Sodium 130 L
Potassium 5.0
Chloride 104
Carbon Dioxide 26
BUN 29 H
Creatinine 1.1
Glucose 72
Calcium 8.1 L
Total Bilirubin 0.4
AST 50
ALT 44
Alkaline Phosphatase 85
Vital Signs:
Vital Signs
Temp Pulse Resp BP Pulse Ox
97.5 F 66 16 159/85 97
08/28/25 07:35 08/28/25 07:35 08/28/25 07:35 08/28/25 07:35 08/28/25 07:35
I&O
08/27/25 08/28/25 08/29/25
06:59 06:59 06:59
Intake Total 840 / 840 1200 / 1200
Output Total 1100 / 1100 1575 / 1575
Balance -260 / -260 -375 / -375
Review of Systems
-
History Source: Patient
All other systems: Not reviewed unless documented
Data Reviewed
-
MRI: Report Reviewed by me
Labs: Labs Reviewed by me
--- NOTE | 2025-08-28 13:32 | W.DS.TRANS ---
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
-
Discharge Instructions:
Discharge Diagnosis/Procedures Neck Pain / Radiculopathy�improved
L Shoulder pain
infected right upper back cyst
Diet Low Cholesterol,Low Fat
Activity As tolerated
Blood Work cbc and cmp in 5 days week with pcp/nephrology (
Monitoring Na)
Instructions:
Stand-Alone Forms:
Changes to Home Medications: Yes
Discharge Medications:
DC Medications w/original date entered in [employer]
atorvastatin 10 mg tablet 10 mg PO QPM High cholesterol 04/14/22
cabozantinib 40 mg tablet (Cabometyx) 40 mg PO DAILY Cancer 04/14/22
carvedilol 3.125 mg tablet 3.125 mg PO BID Heart disease/condition 04/14/22
lisinopril 5 mg tablet 5 mg PO BID Blood pressure 04/14/22
omeprazole 20 mg tablet,delayed release 20 mg PO DAILY Gastrointestinal issue 04/14/22
ondansetron 8 mg disintegrating tablet 8 mg PO Q12H PRN nausea 04/14/22
gabapentin 300 mg capsule 300 mg PO TID Neurological Condition 11/23/22
levothyroxine 125 mcg tablet 125 mcg PO DAILY Thyroid 08/23/25
lidocaine 4 % topical patch 1 patch topical DAILY #100 ea 08/28/25
methylprednisolone 4 mg tablet 4 mg PO ONCE #1 tab 08/28/25
tramadol 50 mg tablet 25 mg (1/2 x 50 mg) PO Q6HPRN PRN MILD pain #12 tabs 08/28/25
Home Medication Changes
lidocaine 4 % topical patch 1 patch topical DAILY #100 ea 08/28/25
methylprednisolone 4 mg tablet 4 mg PO ONCE #1 tab 08/28/25
tramadol 50 mg tablet 25 mg (1/2 x 50 mg) PO Q6HPRN PRN MILD pain #12 tabs 08/28/25
Pending Results: No
--- NOTE | 2025-08-28 13:43 | W.DS.TRANS ---
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
-
Discharge Instructions:
Discharge Diagnosis/Procedures Neck Pain / Radiculopathy�improved
L Shoulder pain
infected right upper back cyst
Diet Low Cholesterol,Low Fat
Activity As tolerated
Blood Work cbc and cmp in 5 days week with pcp/nephrology (
Monitoring Na)
Instructions:
Stand-Alone Forms:
Changes to Home Medications: Yes
Discharge Medications:
DC Medications w/original date entered in [employer]
atorvastatin 10 mg tablet 10 mg PO QPM High cholesterol 04/14/22
cabozantinib 40 mg tablet (Cabometyx) 40 mg PO DAILY Cancer 04/14/22
carvedilol 3.125 mg tablet 3.125 mg PO BID Heart disease/condition 04/14/22
lisinopril 5 mg tablet 5 mg PO BID Blood pressure 04/14/22
omeprazole 20 mg tablet,delayed release 20 mg PO DAILY Gastrointestinal issue 04/14/22
ondansetron 8 mg disintegrating tablet 8 mg PO Q12H PRN nausea 04/14/22
gabapentin 300 mg capsule 300 mg PO TID Neurological Condition 11/23/22
levothyroxine 125 mcg tablet 125 mcg PO DAILY Thyroid 08/23/25
lidocaine 4 % topical patch 1 patch topical DAILY #100 ea 08/28/25
methylprednisolone 4 mg tablet 4 mg PO ONCE #1 tab 08/28/25
tramadol 50 mg tablet 25 mg (1/2 x 50 mg) PO Q6HPRN PRN MILD pain #12 tabs 08/28/25
Home Medication Changes
lidocaine 4 % topical patch 1 patch topical DAILY #100 ea 08/28/25
methylprednisolone 4 mg tablet 4 mg PO ONCE #1 tab 08/28/25
tramadol 50 mg tablet 25 mg (1/2 x 50 mg) PO Q6HPRN PRN MILD pain #12 tabs 08/28/25
Pending Results: No
[2025-08-28 15:06] VITALS: BP 148/80
--- NOTE | 2025-08-28 16:36 | W.PN.NEPH.PH ---
Today's Communication / Plan
-
see plan
Assessment/Plan
-
Assessment
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
Acute hyponatremia
Pancreatic mass
Left lower lobe consolidation
Left nephrectomy, solitary right kidney
Hypertension
Neck pain
Plan
sodium stbale at 130 wiht out samsca
would cont FR at d/c and repeat BMP on Sunday with PCP
Encourage solid oral intake which she has issues given history of left-sided trigeminal neuralgia and jaw issues subsequent
pain control per primary team
may benefit from low dose lasix in future if soidum remains low
-
-
Date of Service: August 28, 2025
CC / HPI / ROS
-
Chief Complaint:
hyponatremia
History of Present Illness:
Na up to 130 with FR
BP stable
pain uncontrolled left side
Review of Systems:
no CP/SOB but can not take deep breath due to left dione epain
Labs
-
Labs:
WBC 8.2 10^3/uL (4.8-10.8) 08/28/25 07:03
RBC 3.48 10^6/uL (4.70-6.10) L 08/28/25 07:03
Hgb 12.7 g/dL (13.0-18.0) L 08/28/25 07:03
Hct 34.9 % (39.0-52.0) L 08/28/25 07:03
Plt Count 290 10^3/uL (130-400) 08/28/25 07:03
Sodium 130 mmol/L (135-145) L 08/28/25 07:03
Potassium 5.0 mmol/L (3.5-5.1) 08/28/25 07:03
Chloride 104 mmol/L (98-107) 08/28/25 07:03
Carbon Dioxide 26 mmol/L (22-30) 08/28/25 07:03
BUN 29 mg/dl (9-20) H 08/28/25 07:03
Creatinine 1.1 mg/dL (0.7-1.3) 08/28/25 07:03
eGFR > 60.00 08/28/25 07:03
Glucose 72 mg/dl (70-99) 08/28/25 07:03
Calcium 8.1 mg/dl (8.4-10.2) L 08/28/25 07:03
Albumin 2.1 g/dl (3.5-5.0) L 08/28/25 07:03
Physical Exam
-
Vital Signs:
Vital Signs
Temp Pulse Resp BP Pulse Ox
97.3 F 65 16 148/80 97
08/28/25 15:06 08/28/25 15:06 08/28/25 15:06 08/28/25 15:06 08/28/25 15:06
Cardiovascular:: Regular rate and rhythm
Respiratory:: Bilateral: Coarse
Lung Excursion:: Normal
Abdomen:: Nontender and Soft
Bowel Sounds:: Normal
Extremity Edema:: +1: Bilateral:
Summers Catheter: No
--- NOTE | 2025-08-28 17:00 | CM ---
MD entered order for discharge today.
Spoke with patient he said he was ready for discharge today.
IMM reviewed signed on chart.
Pt said his brother will drive him home.
Pt requested [facility] referral was in care port.
PLAN Home with [facility]
== END 2025-08-28 16:54 | disposition home or self-care (01) | DRG 74 ==
LOC: 3 WEST ACU 14:51
PROVIDERS: Physician Assistant; ADMITTING PHYSICIAN Hospitalist; ATTENDING PHYSICIAN Internal Medicine; CONSULT PHYSICIAN Specialist; CONSULT PHYSICIAN Surgery; EMERGENCY PHYSICIAN Emergency Medicine; FAMILY PHYSICIAN Internal Medicine
PROC: 0J970ZZ Drainage of Back Subcutaneous Tissue and Fascia, Open Approach (ICD-10-PCS; 2025-08-24)
DX: M54.12 Radiculopathy, cervical region (principal); E22.2 Syndrome of inappropriate secretion of antidiuretic hormone; C79.71 Secondary malignant neoplasm of right adrenal gland; C64.9 Malignant neoplasm of unspecified kidney, except renal pelvis; C78.7 Secondary malignant neoplasm of liver and intrahepatic bile duct; M25.512 Pain in left shoulder; L08.89 Other specified local infections of the skin and subcutaneous tissue; L72.3 Sebaceous cyst; E03.9 Hypothyroidism, unspecified; I10 Essential (primary) hypertension; M48.00 Spinal stenosis, site unspecified; E11.9 Type 2 diabetes mellitus without complications; D49.6 Neoplasm of unspecified behavior of brain; M19.90 Unspecified osteoarthritis, unspecified site; Z79.899 Other long term (current) drug therapy
CPT/HCPCS: 70450; 71250; 72050; 72156; 74176; 80048; 80053; 83930; 83935; 84300; 84484; 85025; 85027; 93005; 96361; 96374; 96375; 97116; 97163; 97167; 97530; 97535; 99285; A9575

== ENCOUNTER 2025-09-04 08:57 | Inpatient (IN) | payer MEDICARE, OTHER, SELFPAY ==
[2025-09-03] VITALS (16 sets, daily range): BP systolic 91–155; BP diastolic 63–79; BMI 22.3; BMI 22.0
[2025-09-03 12:44] LABS: Hematocrit 33.5 % (39.0-52.0); Hemoglobin 11.7 g/dL (13.0-18.0); Mean Corp Hgb Conc. 34.9 g/dL (33.0-37.0); Mean Corpuscular Volume 100.6 fL (80.0-94.0); Nucleated Red Blood Cells % 0 % (-); Platelet Count 298 10^3/uL (130-400); Red Cell Dist. Width 13.6 % (11.5-14.5)
[2025-09-03 13:01] LABS: ALT (SGPT) 91 U/L (0-50); AST (SGOT) 147 U/L (17-59); Albumin 2.1 g/dl (3.5-5.0); Alkaline Phosphatase 129 U/L (38-126); Blood Urea Nitrogen 18 mg/dl (9-20); Calcium 7.7 mg/dl (8.4-10.2); Carbon Dioxide 23 mmol/L (22-30); Chloride 97 mmol/L (98-107); Glucose 90 mg/dl (70-99); Magnesium 2.2 mg/dl (1.6-2.3); Potassium 4.4 mmol/L (3.5-5.1); Sodium 125 mmol/L (135-145); Total Protein 4.7 g/dl (6.3-8.2); eGFR > 60.00
--- NOTE | 2025-09-03 14:14 | ED.GENMED ---
History of Present Illness
General
Chief Complaint: Failure to Thrive
Source: patient, records and family
Exam Limitations: none
Time Seen by Provider: 09/03/25 14:13
History of Present Illness
History of Present Illness:
70yoM with a history of metastatic renal cell carcinoma (follows with Dr. Hargrove, receives PO Carbometyx and monthly immunotherapy infusions) presenting with his stepdaughter for evaluation of generalized weakness. Patient was recently hospitalized
from 08/23 to 08/28/2025 for intractable pain as well as hyponatremia. He continues to be in severe pain despite taking gabapentin and tramadol. Pain is located in the left shoulder and left side of the chest and worsens with movement. He also
reports increasing weakness and is not eating or drinking much due to lack of appetite and nausea. He is barely able to get out of bed at this point and family has to assist him with activities of daily living. He has a visiting nurse coming 3
times weekly. Daughter reports that he has had a significant decline in health over the past month. He is scheduled to have his next immunotherapy in 4 days. Daughter is concerned that he is too weak to go to this appointment. Daughter believes
he may need hospice although patient states he is not ready to yet.
Past History
Past History
ED Past Medical History: Cancer (Kidney CA, with mets to pancreas, then a brain tumor for which he had radiation 5 treatments. ), NIDDM and Other (Left trigeminal nerve damage); Negative Asthma, HTN or Hypercholesterolemia
ED Past Surgical History: Urological (Left Nephrectomy)
Social History
Tobacco: Non-smoker
Alcohol: None
Personal:
Living: with family
Phy Exam
Physical Exam
Physical Exam:
Chronically ill appearing, cachectic male, dry mucous membranes
General Physical Exam
General Presentation: no apparent distress
General age: appears older than age
General Skin: warm and dry
General Habitus: cachetic, elderly and failure to thrive
General Mental: alert
ENT Exam
ENT Exam: normocephalic
Cardiovascular Exam
Cardiovascular Exam: regular rate/rhythm
Pulmonary Exam
Pulmonary Exam: lungs clear, no respiratory distress, no rales, no crackles, no rhonchi and no wheezing
Neurological Exam
Neurological Exam: alert
[place] Coma Scale
Eye Opening: Spontaneous
Verbal Response: Oriented
Motor Response: Obeys Commands
GCS Total Score: 15
Skin Exam
Skin Exam: normal color and warm/dry
Psychiatric Exam
Psychiatric Exam: normal mood/affect
Course
Orders/Labs/Results
Orders:
Orders
09/03/25 12:28
EKG [Electrocardiogram (*1)] Urgent
Reason for Study: Fatigue / Weakness
EKG- Treatment ONCE
09/03/25 12:35
Complete Blood Count/With Diff Urgent
Comprehensive Metabolic Panel Urgent
Magnesium Urgent
09/03/25 14:45
HYDROmorphone [Dilaudid] 0.5 mg IV NOW STA
09/03/25 17:00
Osmolality, Random Urine Urgent
Date Specimen was Collected: 09/03/25
Time Specimen was Collected: 14:49
Urine Sodium Urgent
Date Specimen was Collected: 09/03/25
Time Specimen was Collected: 14:49
09/03/25 17:17
Admit/Transfer Patient As Directed
Co-Sign Provider:
Level of Care: Observation services
Assign to:: Medical/Surgical
Physician / Group: Abbey Wiley
Diagnosis: AFTT
PRN Pain Medication Management As Directed
May give lesser potent ordered pain med per pt: Yes
preference::
Protocol:: Medication orders for pain may be administered in a
manner that supports deferring to patient preference
when the pt is:
- Requesting an ordered lesser potent pain medication.
Least to most potent pain medications are defined
as: acetaminophen < NSAID < tramadol < opioids
(morphine, oxycodone, hydromorphone).
- Requesting a lesser dose of the same medication IF
ORDERED.
- Requesting a less intrusive route of administration
if both routes are prescribed by the provider (PO <
IV).
09/03/25 17:18
Code Status As Directed
Resuscitation Status: Do not resuscitate
Reached after discussion with pt or family/Healthcare POA: Yes
Decision communicated with: patient and step-daughter
DNR Bracelet Application ONCE
09/04/25 08:00
cabozantinib See Dose Instructions PO DAILY
Abnormal Lab Results
09/03/25 09/03/25
12:35 17:00
WBC 11.0 H 10^3/uL
(4.8-10.8)
RBC 3.33 L 10^6/uL
(4.70-6.10)
Hgb 11.7 L g/dL
(13.0-18.0)
Hct 33.5 L %
(39.0-52.0)
MCV 100.6 H fL
(80.0-94.0)
MCH 35.1 H pg
(27.0-31.0)
Abs Immat Gran (auto) 0.1 H 10^3/uL
(0-0.05)
Absolute Neuts (auto) 9.1 H 10^3/uL
(1.4-6.5)
Absolute Lymphs (auto) 0.8 L 10^3/uL
(1.2-3.4)
Absolute Monos (auto) 0.9 H 10^3/uL
(0.1-0.6)
Neutrophils % 82.4 H %
(42.2-75.2)
Lymphocytes % 7.1 L %
(20.5-51.1)
Sodium 125 L mmol/L
(135-145)
Chloride 97 L mmol/L
(98-107)
Calcium 7.7 L mg/dl
(8.4-10.2)
AST 147 H U/L
(17-59)
ALT 91 H U/L
(0-50)
Alkaline Phosphatase 129 H U/L
(38-126)
Total Protein 4.7 L g/dl
(6.3-8.2)
Albumin 2.1 L g/dl
(3.5-5.0)
Urine Sodium 13 L mmol/L
(30-90)
09/03/25 12:35
09/03/25 12:35
Vital Signs
Initial and Last Documented VS:
Initial Vital Signs
Temp Pulse Resp BP Pulse Ox
97.4 F 63 15 120/71 96
09/03/25 12:26 09/03/25 12:26 09/03/25 12:26 09/03/25 12:26 09/03/25 12:26
Last Documented Vital Signs
Temp Pulse Resp BP Pulse Ox
97.4 F 61 10 107/69 95
09/03/25 12:26 09/03/25 19:30 09/03/25 20:00 09/03/25 20:00 09/03/25 19:45
MDM/Problems Addressed
Differential Diagnosis Includes:
70yoM here with generalized weakness and ongoing L shoulder/chest pain. Admitted last week for intractable pain. Now not eating/drinking and barely able to stand. Hx of metastatic renal cancer. VSS. Patient cachectic and chronically ill-appearing
on exam. Mucous membranes are dry. Differential diagnosis includes but is not limited to: Failure to thrive, progression of malignancy, dehydration
Workup initiated in triage. Sodium 125. He was treated for hyponatremia during his last hospitalization which was thought to be 2/2 SIADH. Sodium 130 at time of discharge. Mild transaminitis also noted and patient has known liver mets. Urine studies
ordered. Patient will require hospitalization as he is unable to care for himself at home. Family requesting to speak with Dr. Hargrove. I reached out to Dr. Hargrove but he was no longer in house for the day and oncology team will see him in consult
tomorrow.
*Pulse Oximetry
SaO2: 96
Oxygen Mode of Delivery: Room air
Patient hypoxic: no
*EKG
Interpreted by ED Provider?: Yes
EKG Intrepretation Date: 09/03/25
Heart Rate: 55
Rate: bradycardiac
Rhythm: sinus
[place]: left axis deviation
QRS Pattern: left bundle branch block
Ischemia: no ischemia
*Critical Care Note
Total Time (30-74mins, 75-104mins- exclusive of procedures): Not Applicable
ED Attending Note
-
Portions of this chart may have been created with voice recognition software.� Occasional wrong word or��sound alike� substitutions may have occurred due to the inherent limitations of voice recognition software.
Discharge Plan
Departure
Patient Disposition: Admit
Date of Disposition: 09/03/25
Time of Disposition: 15:08
Presentation/result/management discussed w/ accepting MD/DO: Hospitalist
Discharge Problem:
Failure to thrive
Interventions
Interventions:
*Risk Screen - Suicide Last Done: 09/03/25 12:26
*General Assessment Last Done: 09/03/25 12:26
*Neglect/Abuse Screening Last Done: 09/03/25 12:26
*ED COVID-19 Vaccine History Last Done: 09/03/25 12:26
*ED Influenza Vaccine History Last Done: 09/03/25 12:26
[facility] Fall Risk Assessment Tool Last Done: 09/03/25 12:26
*Nursing Disposition Last Done: 09/03/25 20:19
Discharge Date and Time
Discharge Date/Time: 09/03/25 20:19
[2025-09-03] MEDS: DILAUDID 0.5 MG IV ×2 (15:08→21:08)
--- NOTE | 2025-09-03 16:27 | HPS.HSE ---
Addendum entered and electronically signed by Abbey Wiley MD 09/03/25 17:46:
This is an addendum to the H&P written by Brenda Smith on 09/03/2025. �Patient seen and examined independently with MANAGER LEAN.
70-year-old male past medical history of metastatic renal cell carcinoma status post left nephrectomy with metastases to pancreas, brain status post resection/radiation and chemotherapy, possible liver mets, mets to left humerus, hyponatremia,
hypertension, hypothyroidism, diabetes, hypercholesteremia, presenting with ongoing intractable pain and weakness. �He has had ongoing pain in the left shoulder and left chest for which he was recently admitted attributed to cervical
radiculopathy/known mets.�
Vital signs show blood pressure 91/63.
Labs show leukocytosis of 11. �Stable anemia of 11.7. �Sodium of 125 from 130 usually above 126.
Patient with failure to thrive/ongoing pain and weakness/failure to thrive secondary to metastatic renal cell carcinoma. �Also with slight worsening of hyponatremia likely SIADH secondary to cancer/pain and decreased PO intake. �Patient would like
to continue chemotherapy if it is helping but family is interested in considering hospice. �Oncology consulted to discuss goals of care.
Urine sodium, osmolality pending.
Original Note:
Family Physician
-
Family Physician: Renny Barajas
Chief Complaint
-
generalized weakness
History of Present Illness
Patient is a 70-year-old male with past medical history significant for metastatic renal cell carcinoma, dyslipidemia, hypothyroidism and hypertension who presented to [facility] ED for evaluation of generalized weakness and left chest, shoulder and back
pain. Patient with recent hospitalization for left sided intractable pain was treated with improvement. Patient states since he has been home the tramadol has been minimal help with the pain. He states that he is unable to get up and out to regular
schedule appointments. Daughter at bedside reports significant decline with preforming ADLs in last month and is consistently needing more help, she also report that patients PO intake is minimal. Patient endorses more significant nausea and
decreased appetite.
Medical History
Past Medical History
Past Medical History: Reports Other
Additional Past Medical History:
metastatic renal cell carcinoma
dyslipidemia
hypothyroidism
hypertension
Past Surgical History: Reports Other
Additional Past Surgical History:
Left Nephrectomy / Adrenalectomy
Social History
Tobacco: Non-smoker
Alcohol: None
Drug: None
Living: With Family
Family History
Family History: Not pertinent
Allergies / Home Medications
Allergies reflects when Allergies were last updated in [employer].
Home Medications with original date entered in [employer]
Allergy/Medication List:
Allergies
Allergy/AdvReac Type Severity Reaction Status Date / Time
No Known Allergies Allergy Verified 11/25/22 22:20
Home Medications
atorvastatin 10 mg tablet 10 mg PO QPM High cholesterol 04/14/22
carvedilol 3.125 mg tablet 3.125 mg PO BID Heart disease/condition 04/14/22
lisinopril 5 mg tablet 5 mg PO BID Blood pressure 04/14/22
ondansetron 8 mg disintegrating tablet 8 mg PO Q8H 04/14/22
levothyroxine 125 mcg tablet 125 mcg PO DAILY Thyroid 08/23/25
tramadol 50 mg tablet 25 mg (1/2 x 50 mg) PO Q6HPRN PRN MILD pain #12 tabs 08/28/25
cabozantinib 40 mg tablet 40 mg PO DAILY 09/03/25
gabapentin 300 mg tablet 300 mg PO TID 09/03/25
Review of Systems
-
History Source: Patient and Family
Constitutional: Reports Weight Loss and Fatigue; Denies Fever or Chills
EENT: Denies Sore Throat
Respiratory: Denies Cough, Hemoptysis or Trouble Breathing
Cardiac: Denies Chest Pain, Diaphoresis, Palpitations or Syncope
Abdomen/GI: Reports Nausea; Denies Abdominal Pain, Vomiting or Diarrhea
: Denies Dysuria, Frequency or Urgency
Musculoskeletal: Reports Other (left upper chest, shoulder and left upper back pain )
Skin: Denies Rash
Neurological: Reports Weakness; Denies Dizzy, Headache or Numbness
Physical Exam
Vital Signs
Vital Signs
Temp Pulse Resp BP Pulse Ox
97.4 F 65 15 91/63 94
09/03/25 12:26 09/03/25 16:07 09/03/25 16:07 09/03/25 16:07 09/03/25 16:07
Physical Exam
General: No Apparent Distress, Conversant, Appears Chronically Ill and Cachectic
HEENT: NormoCephalic, Nose Appears Normal and Ears Appear Normal
Respiratory: Clear and Non Labored Respirations; No Wheezes, Rales or Rhonchi
Cardiac: Regular Rhythm and Peripheral Edema; No Murmur, Rub or Gallop
GI: Soft, Non Tender, Non Distended and Normal Bowel Sounds
Musculoskeletal: No Clubbing and No Cyanosis
Skin: Warm and IV/Catheter Site
Neuro: Awake and AO x 3
Psych: Calm
Laboratory Results
-
09/03/25 12:35
09/03/25 12:35
Laboratory Results
Total Bilirubin 0.4 mg/dl (0.2-1.3) 09/03/25 12:35
AST 147 U/L (17-59) H 09/03/25 12:35
ALT 91 U/L (0-50) H 09/03/25 12:35
Alkaline Phosphatase 129 U/L (38-126) H 09/03/25 12:35
Data Reviewed
-
Medical Tests (Nuc Med, Echo, EKG etc): Report Reviewed by me (EKG: SINUS BRADYCARDIA LEFT BUNDLE BRANCH BLOCK)
Lab Data: Labs Reviewed by me (WBC 11.0, hgb 11.7, hct 33.5, neut 82.4, Na 125, Ca 7.7, AST 147, ALT 91, Alk Phos 129, albumin 2.1)
Impression/Plan
-
IMPRESSION/PLAN:
#generalized weakness and increased pain likely 2/2 metastatic renal cell carcinoma
inability to perform ADLs without assistance, unable to get out of house to appoints r/t weakness
known mets to brain, bones, possible liver and pancreas
WBC 11.0, hgb 11.7, hct 33.5, neut 82.4
EKG: SINUS BRADYCARDIA
LEFT BUNDLE BRANCH BLOCK
- Admit to med/surg
- Consult Oncology Dr. Hargrove
- pain regimen
#hyponatremia
Na 125
appears to be baseline, patient ranges from 123-130
- monitor BMP
#hypocalcemia
Ca 7.7 (Corrected to 9.2), albumin 2.1
#transaminitis
AST 147, ALT 91, Alk Phos 129
patient with seen 3.2cm malignant mass in the pancreatic body and small number of low-attenuation lesions in the liver (possibly hepatic metastases) on CT at previous admission
- trend LFTs
#metastatic renal cell carcinoma
follows with [place]
s/p brain tumor resection, left nephrectomy and radiation
- continue cabozantinib
#dyslipidemia
- hold atorvastatin in the setting of transaminitis
#hypothyroidism
- continue levothyroxine
#hypertension
- continue carvedilol and lisinopril
Code status: DNR
DVT prophylaxis: Lovenox sq
--- NOTE | 2025-09-03 17:25 | EDRN ---
oral chemo medication taken to pharmacy to be labeled for scanning administration for admission
--- NOTE | 2025-09-03 17:38 | CM ---
Chart reviewed
He was here at in early August and dc home on 08/28 with [facility]
He lives with dtr and DARRICK in a multilevel home
He was independent with ADLs and ambulation till recently
Dtr reported his generalized weakness and poor appetite
PCP Renny Barajas
[facility]
hx of [facility]
no SNF
DCP is to discuss with patient and family
dc home with services vs
CM will continue to follow up for any dcp needs
--- NOTE | 2025-09-03 19:04 | EDRN ---
pharmacy still currently has oral chemotherapy medication, this RN asked the pharmacy to hold onto medication until the pt was brought to admitting room of 2131, this RN called the second floor and notified them that the pharmacy will be holding
onto the oral chemotherapy medication until the receiving second floor nurse calls for it
[2025-09-03] MEDS: LOVENOX 40 MG SC (21:08)
[2025-09-03] MEDS: NEURONTIN 300 MG PO (21:09)
[2025-09-03] MEDS: ZESTRIL 5 MG PO (21:09)
[2025-09-03] MEDS: COREG 3.125 MG PO (21:10)
[2025-09-04] MEDS: REMOVE LIDOCAINE PATCH 1 PATCH REMOVE (02:00)
[2025-09-04] MEDS: SYNTHROID 125 MCG PO (05:49)
[2025-09-04 07:00] VITALS: BP 108/59
--- NOTE | 2025-09-04 08:20 | VNURNOTE ---
Chart reviewed. Patient is current with [facility]. Will continue to follow hospital course and DC plans.
[2025-09-04] MEDS: ZESTRIL 5 MG PO ×2 (08:56→19:41)
[2025-09-04] MEDS: NEURONTIN 300 MG PO ×3 (08:56→21:37)
--- NOTE | 2025-09-04 08:56 | W.PN.HOSP.TC ---
Today's Communication/Plan
-
see bold
Assessment / Plan
Assessment / Plan
HPI: 70-year-old male past medical history of metastatic renal cell carcinoma status post left nephrectomy with metastases to pancreas, brain status post resection/radiation and chemotherapy, possible liver mets, mets to left humerus, hyponatremia,
hypertension, hypothyroidism, diabetes, hypercholesteremia, presenting with ongoing intractable pain and weakness. �He has had ongoing pain in the left shoulder and left chest for which he was recently admitted attributed to cervical
radiculopathy/known mets.�Labs show leukocytosis of 11. �Stable anemia of 11.7. �Sodium of 125 from 130 usually above 126. Patient with failure to thrive/ongoing pain and weakness/failure to thrive secondary to metastatic renal cell carcinoma. �Also
with slight worsening of hyponatremia likely SIADH secondary to cancer/pain and decreased PO intake. �Patient would like to continue chemotherapy if it is helping but family is interested in considering hospice. �Oncology consulted to discuss goals
of care.
#Metastatic renal cell carcinoma w/ widespread metastatic disease
Appreciate oncology input, patient is hospice appropriate
Consult hospice
#Left humerus/left upper back pain
Likely from metastatic osseous lesions
Start lidocaine patches, oxycodone. Discontinue tramadol
#Acute on chronic hyponatremia
Likely from SIADH from pain
Fluid restrict, trend sodium
#Constipation
Start Senokot�S
#Hypoglycemia
#Poor oral intake
Start Ensure vanilla twice daily
#Chronic megaloblastic anemia
Monitor hemoglobin
#Essential hypertension
Continue lisinopril, Coreg
#Hyperlipidemia
Continue statin
#Hypothyroidism
Continue levothyroxine
DVT prophylaxis�subcu Lovenox
DNR
Updated daughters at bedside 09/04
Total time spent to see the patient on the floor, examine the patient, review data and lab results, discuss treatment plan with patient, nursing staff around 50 minutes.
Physical Exam
General: Appears chronically ill, no acute distress
HEENT: Normocephalic, Atraumatic, EOMI, MMM
Respiratory: Clear to Auscultation bilaterally
Cardiac: Normal S1/S2, Regular Rate and Rhythm
GI: Soft, Nontender, Nondistended, Normal Bowel Sounds
Extremities: No Clubbing, Cyanosis
Neuro: Nonfocal/Grossly Intact
Anticipated Discharge: Today
Subjective/Interval History
-
Date of Service: September 04, 2025
Patient complains of left shoulder, left upper back pain. He denies shortness of breath. He still has poor oral intake. No fever, no vomiting.
Objective Data
-
Labs:
Laboratory Results
09/04/25
08:03
Sodium Pending
Potassium Pending
Chloride Pending
Carbon Dioxide Pending
BUN Pending
Creatinine Pending
Glucose Pending
Calcium Pending
Vital Signs:
Vital Signs
Temp Pulse Resp BP Pulse Ox
97.6 F 63 19 129/74 98
09/03/25 23:12 09/03/25 23:12 09/03/25 23:12 09/03/25 23:12 09/04/25 02:07
I&O
09/03/25 09/04/25 09/05/25
06:59 06:59 06:59
Intake Total 480 / 480
Output Total 450 / 450
Balance 30 / 30
[2025-09-04] MEDS: COREG 3.125 MG PO ×2 (08:57→19:41)
[2025-09-04] MEDS: NON-FORMULARY ITEM 40 MG PO (08:57)
[2025-09-04] MEDS: DILAUDID 0.5 MG IV ×3 (08:58→19:38)
[2025-09-04 09:08] LABS: Blood Urea Nitrogen 18 mg/dl (9-20); Calcium 7.5 mg/dl (8.4-10.2); Carbon Dioxide 24 mmol/L (22-30); Chloride 98 mmol/L (98-107); Estimated Creatinine Clearance 71 ml/min; Glucose 53 mg/dl (70-99); Potassium 4.5 mmol/L (3.5-5.1); Sodium 125 mmol/L (135-145); eGFR > 60.00
--- NOTE | 2025-09-04 10:44 | CM ---
Addendum entered by Mari Pierre 09/04/25 12:29:
referral sent via all scripts for hospice eval
Addendum entered by Mari Pierre 09/04/25 11:35:
Patient and family seen at bedside on . Patient family indicated that he was looking for hospice to have a discussion about options. [facility] liaison aware. CM will continue to follow for discharge planning needs.
Original Note:
Patient now changed to INP status per orders. CM will update patient and review plan for discharge.
[2025-09-04] MEDS: ROXICODONE 5 MG PO (11:15)
[2025-09-04] MEDS: LIDOCAINE 4% PATCH 2 PATCH TOPICAL (11:15)
--- NOTE | 2025-09-04 11:26 | CON.ONC ---
Consultation
-
Date Consultation Requested: 09/03/25
Date Consultation Performed: 09/04/25
Requesting Provider: PRITI Nevarez
Performing Provider: Dr. Seaman
Reason for Consultation: metastatic renal cell carcinoma
Impression
Impression
metastatic renal cell caricnoma
chronic malignancy related pain
failure to thrive
Plan
Plan
1. Metastatic renal cell carcinoma w/ widespread metastatic disease
-reviewed recent imaging w/ patient and family in detail - demonstrating widespread metastatic disease
-patient expressed that chronic pain and deconditioning - he is having some difficulty managing medications/ side effects and is not interested in further systemic therapy for his advanced malignancy
-discussed supportive care options including both palliative care and hospice care
-after discussion - pt expressed an interest in transition to hospice care at home
-communicated conversation w/ hospitalist - Dr. Barney
-CM has been consulted
Patient History
History of Present Illness
70y/o male seen in oncology consultation regarding metastatic renal cell carcinoma.
The patient was diagnosed w/ renal cell carcinoma in 2007, undergoing left nephrectomy, w Dr. Alvarado. In 2019, he presented w/ abdominal pain, prompting imaging demonstrating pancreatic lesions, as well as right adrenal lesion. EUS w/ biopsy of
pancreatic lesion was performed w/ pathology c/w metastatic renal cell carcinoma. He has been followed and treated since that time, w/multiple immunotherapy and targeted therapy agents, under the care of Dr. Hargrove.
In 2021, he developed cavernous sinus brain metastasis, treated w/ radiation. Over the past several years he has developed hepatic metastasis as well as bone metastasis, pulmonary nodules, possible pleural based metastasis, in addition, to known
pancreatic, right adrenal, and right renal masses.
His most recent treatment regimen has included opdivo and cabometyx. This regimen has become progressively more difficult to tolerated due to overall decline in performance status and pain. He has difficulty ambulating and spends a great deal of
time supine in bed.
He is weak today and notes pain in his left shoulder region. No SOB at rest or chest pain. He denies any new headaches or neurologic complaints. He has occasinoal abdominal pain. His appetite is decreased and he notes progressive weight loss.
Past-Medical/Surgical History
PMH:
stage IV - metastatic renal cell carcinoma - w/ widespread disease
chronic pain
dyslipidemia
hypothyroidism
hypertension
PSH:
Left Nephrectomy / Adrenalectomy - 2007
Social History
Tobacco: Non-smoker
Alcohol: None
Family History
Family History: Not pertinent
Allergies: NKDA
Patient Medication
�Medication �Instructions �Recorded �Confirmed �Last Taken �Type
atorvastatin 10 mg tablet 10 mg PO QPM High cholesterol 04/14/22 09/03/25 11/22/22 History
carvedilol 3.125 mg tablet 3.125 mg PO BID Heart 04/14/22 09/03/25 11/23/22 History
disease/condition
lisinopril 5 mg tablet 5 mg PO BID Blood pressure 04/14/22 09/03/25 11/23/22 History
ondansetron 8 mg disintegrating 8 mg PO Q8H 04/14/22 09/03/25 04/14/22 History
tablet 8 mg
levothyroxine 125 mcg tablet 125 mcg PO DAILY Thyroid 08/23/25 09/03/25 Unknown History
tramadol 50 mg tablet 25 mg (1/2 x 50 mg) PO Q6HPRN PRN 08/28/25 09/03/25 Unknown Rx
MILD pain #12 tabs
cabozantinib 40 mg tablet 40 mg PO DAILY 09/03/25 09/03/25 Unknown History
gabapentin 300 mg tablet 300 mg PO TID 09/03/25 09/03/25 Unknown History
Active Medications
Generic Name Dose Route Start Last Admin
Trade Name Freq PRN Reason Stop Dose Admin
Acetaminophen 650 mg 09/03/25 20:38
Acetaminophen 325 Mg Tablet PO 10/01/25 20:37
Q4HPRN PRN
mild pain/CARBALLO/temp> 100.4F
Carvedilol 3.125 mg 09/03/25 20:38 09/04/25 08:57
Carvedilol 3.125 Mg Tablet PO 10/01/25 20:37 3.125 mg
BID LARS Administration
Enoxaparin Sodium 40 mg 09/03/25 20:38 09/03/25 21:08
Enoxaparin Sodium 40 Mg/0.4 Ml Syringe SC 10/01/25 20:37 40 mg
QPM LARS Administration
Gabapentin 300 mg 09/03/25 22:00 09/04/25 08:56
Gabapentin 300 Mg Capsule PO 10/01/25 21:59 300 mg
TID LARS Administration
Hydromorphone HCl 0.5 mg 09/03/25 20:38 09/04/25 08:58
Hydromorphone 0.5 Mg/0.5 Ml Syringe IV 09/17/25 20:37 0.5 mg
Q4HPRN PRN Administration
severe pain
Levothyroxine Sodium 125 mcg 09/04/25 06:00 09/04/25 05:49
Levothyroxine 125 Mcg Tablet PO 10/02/25 05:59 125 mcg
DAILY @ 0600 LARS Administration
Lidocaine 2 patch 09/04/25 10:40 09/04/25 11:15
Lidocaine 4% Topical Patch TOPICAL 10/02/25 10:39 2 patch
DAILY LARS Administration
Protocol
Lisinopril 5 mg 09/03/25 20:38 09/04/25 08:56
Lisinopril 5 Mg Tablet PO 10/01/25 20:37 5 mg
BID LARS Administration
Cabozantinib 40 Mg 0 mg 09/04/25 08:00 09/04/25 08:57
Tablet Po Daily PO 10/02/25 07:59 40 mg
DAILY LARS Administration
Ondansetron HCl 8 mg 09/03/25 21:49
Ondansetron 4 Mg Tablet PO 10/01/25 21:48
Q8HPRN PRN
nausea/vomiting
Oxycodone HCl 5 mg 09/04/25 10:39
Oxycodone 5 Mg Regular Release Tablet PO 09/18/25 10:38
Q4HPRN PRN
moderate pain
Oxycodone HCl 10 mg 09/04/25 10:39
Oxycodone 10 Mg Regular Release Tablet PO 09/18/25 10:38
Q4HPRN PRN
severe pain
Patch Removal 2 patch 09/04/25 20:00
Remove Lidocaine Patch REMOVE 10/02/25 19:59
DAILY@2000 LARS
Senna/Docusate Sodium 2 tablet 09/04/25 11:00
Docusate W/Senna (Arlene-Colace) Tablet PO 10/02/25 10:59
BID LARS
Sodium Chloride 0 flush 09/03/25 21:00
Sodium Chloride 0.9% (Flush) Syringe IV 10/01/25 20:59
PER PROTOCOL LARS
Review of Systems
-
A ROS was performed w/ pertinent findings as per HPI.
Physical Exam
-
General: Appears Chronically Ill
HEENT: Negative Jaundice
Cardiology: Normal Sinus Rhythm
Pulmonary: Other (decreased breath sounds at bases)
GI: Soft
Extremities: No C/C/E
Neurology: Non Focal
Labs
Lab Results
WBC 11.0 10^3/uL (4.8-10.8) H 09/03/25 12:35
RBC 3.33 10^6/uL (4.70-6.10) L 09/03/25 12:35
Hgb 11.7 g/dL (13.0-18.0) L 09/03/25 12:35
Hct 33.5 % (39.0-52.0) L 09/03/25 12:35
MCV 100.6 fL (80.0-94.0) H 09/03/25 12:35
MCH 35.1 pg (27.0-31.0) H 09/03/25 12:35
MCHC 34.9 g/dL (33.0-37.0) 09/03/25 12:35
RDW 13.6 % (11.5-14.5) 09/03/25 12:35
Plt Count 298 10^3/uL (130-400) 09/03/25 12:35
MPV 9.0 fL (7.4-10.4) 09/03/25 12:35
Abs Immat Gran (auto) 0.1 10^3/uL (0-0.05) H 09/03/25 12:35
Absolute Neuts (auto) 9.1 10^3/uL (1.4-6.5) H 09/03/25 12:35
Absolute Lymphs (auto) 0.8 10^3/uL (1.2-3.4) L 09/03/25 12:35
Absolute Monos (auto) 0.9 10^3/uL (0.1-0.6) H 09/03/25 12:35
Absolute Eos (auto) 0.2 10^3/uL (0-0.7) 09/03/25 12:35
Absolute Basos (auto) 0.0 10^3/uL (0-0.2) 09/03/25 12:35
Immature Gran % 0.5 % (0-0.5) 09/03/25 12:35
Neutrophils % 82.4 % (42.2-75.2) H 09/03/25 12:35
Lymphocytes % 7.1 % (20.5-51.1) L 09/03/25 12:35
Monocytes % 8.2 % (1.7-9.3) 09/03/25 12:35
Eosinophils % 1.5 % (0-6) 09/03/25 12:35
Basophils % 0.3 % (0-2) 09/03/25 12:35
Creatinine 1.0 mg/dL (0.7-1.3) 09/04/25 08:03
Vital Signs
Vital Signs
Temp Pulse Resp BP Pulse Ox
97.8 F 63 20 129/74 96
09/04/25 07:00 09/04/25 08:57 09/04/25 07:00 09/04/25 08:57 09/04/25 07:00
[2025-09-04 11:30] VITALS: BMI 22.0
[2025-09-04] MEDS: SENOKOT-S 2 TABLET PO ×2 (12:09→19:39)
--- NOTE | 2025-09-04 12:15 | HOSPNOTE ---
Notified that patient and family were interested in hospice. Called and spoke to daughter Ivette. Reviewed hospice and all the information. She stated that her sister and father are still digesting the information. The plan is for me to reach out
to Ivette tomorrow to follow up. More information to follow. CM and Attending updated.
[2025-09-04 15:00] VITALS: BP 99/53
[2025-09-04] MEDS: ROXICODONE 10 MG PO (15:54)
[2025-09-04] MEDS: LOVENOX 40 MG SC (18:16)
[2025-09-04] MEDS: REMOVE LIDOCAINE PATCH 2 PATCH REMOVE (19:42)
[2025-09-04 21:44] LABS: Glucose - Point of Care 74 mg/dl (70-99)
[2025-09-04 23:18] VITALS: BP 115/66
[2025-09-05] MEDS: DILAUDID 0.5 MG IV ×3 (04:39→12:53)
[2025-09-05] MEDS: SYNTHROID 125 MCG PO (04:43)
[2025-09-05 05:41] LABS: Glucose - Point of Care 83 mg/dl (70-99)
[2025-09-05 07:00] VITALS: BP 112/68
--- NOTE | 2025-09-05 07:42 | W.PN.HOSP.TC ---
Today's Communication/Plan
-
see bold
Assessment / Plan
Assessment / Plan
HPI: 70-year-old male past medical history of metastatic renal cell carcinoma status post left nephrectomy with metastases to pancreas, brain status post resection/radiation and chemotherapy, possible liver mets, mets to left humerus, hyponatremia,
hypertension, hypothyroidism, diabetes, hypercholesteremia, presenting with ongoing intractable pain and weakness. �He has had ongoing pain in the left shoulder and left chest for which he was recently admitted attributed to cervical
radiculopathy/known mets.�Labs show leukocytosis of 11. �Stable anemia of 11.7. �Sodium of 125 from 130 usually above 126. Patient with failure to thrive/ongoing pain and weakness/failure to thrive secondary to metastatic renal cell carcinoma. �Also
with slight worsening of hyponatremia likely SIADH secondary to cancer/pain and decreased PO intake. �Patient would like to continue chemotherapy if it is helping but family is interested in considering hospice. �Oncology consulted to discuss goals
of care.
#Metastatic renal cell carcinoma w/ widespread metastatic disease
Appreciate oncology input, patient is hospice appropriate
Family is agreeable, hospice following
#Left humerus/left upper back pain
Likely from metastatic osseous lesions
Started lidocaine patches, oxycodone, IV dilaudid. Discontinue tramadol
#Cough with eating/swallowing pills
Urgent consult to [facility]
#Acute on chronic hyponatremia
Likely from SIADH from pain
Fluid restrict, trend sodium
#Constipation
Started Senokot�S
#Hypoglycemia
#Poor oral intake
Started Ensure vanilla twice daily
#Chronic megaloblastic anemia
Monitor hemoglobin
#Essential hypertension
Continue lisinopril, Coreg
#Hyperlipidemia
Continue statin
#Hypothyroidism
Continue levothyroxine
DVT prophylaxis�subcu Lovenox
DNR
Updated daughters at bedside 09/04
Total time spent to see the patient on the floor, examine the patient, review data and lab results, discuss treatment plan with patient, nursing staff around 40 minutes.
Physical Exam
General: Appears chronically ill, no acute distress
HEENT: Normocephalic, Atraumatic, EOMI, MMM
Respiratory: Clear to Auscultation bilaterally
Cardiac: Normal S1/S2, Regular Rate and Rhythm
GI: Soft, Nontender, Nondistended, Normal Bowel Sounds
Extremities: No Clubbing, Cyanosis
Neuro: Nonfocal/Grossly Intact
Anticipated Discharge: 24 - 48 hours
Subjective/Interval History
-
Date of Service: September 05, 2025
Nursing staff reports patient was coughing while taking his pills and eating applesauce this morning. He seems confused today. Still having poor oral intake. Continues to have left shoulder pain, currently 10 in intensity. No fever, no vomiting.
Objective Data
-
Labs:
Laboratory Results
09/05/25
06:19
Sodium Pending
Potassium Pending
Chloride Pending
Carbon Dioxide Pending
BUN Pending
Creatinine Pending
Glucose Pending
Calcium Pending
Vital Signs:
Vital Signs
Temp Pulse Resp BP Pulse Ox
98.1 F 69 18 115/66 90
09/04/25 23:18 09/04/25 23:18 09/04/25 23:18 09/04/25 23:18 09/04/25 23:18
I&O
09/04/25 09/05/25 09/06/25
06:59 06:59 06:59
Intake Total 480 / 480 240 / 240
Output Total 450 / 450 500 / 500
Balance 30 / 30 240 / 240 -500 / -500
[2025-09-05 07:55] LABS: Blood Urea Nitrogen 19 mg/dl (9-20); Calcium 7.4 mg/dl (8.4-10.2); Carbon Dioxide 22 mmol/L (22-30); Chloride 97 mmol/L (98-107); Estimated Creatinine Clearance 65 ml/min; Glucose 80 mg/dl (70-99); Potassium 4.3 mmol/L (3.5-5.1); Sodium 125 mmol/L (135-145); eGFR > 60.00
[2025-09-05] MEDS: LIDOCAINE 4% PATCH 2 PATCH TOPICAL (08:57)
[2025-09-05] MEDS: SENOKOT-S 2 TABLET PO (08:58)
[2025-09-05] MEDS: ZESTRIL 5 MG PO (08:58)
[2025-09-05] MEDS: COREG 3.125 MG PO (08:58)
[2025-09-05] MEDS: NON-FORMULARY ITEM 40 MG PO (08:58)
[2025-09-05] MEDS: NEURONTIN 300 MG PO (08:58)
--- NOTE | 2025-09-05 11:41 | W.PN.UPDATE ---
Update Note
Progress Note Update
Discussed with patient's nurse and hospice nurse, patient is nauseous, and continues to deteriorate. Family interested in inpatient hospice.
Will initiate comfort care measures today, stop unnecessary oral medications, order IV medications for nausea, pain.
Plan to admit to inpatient hospice tomorrow.
Total time spent to see the patient on the floor, examine the patient, review data and lab results, discuss treatment plan with patient, nursing staff around 51 minutes.
[2025-09-05] MEDS: ZOFRAN 4 MG IV (11:55)
--- NOTE | 2025-09-05 12:04 | PTOTSP ---
ST CONSULT
Received and appreciate [employer]EL[employer] consultation due to reports of pt coughing with PO meds this morning as well as with pureed solids and liquids. Chart reviewed. Pt had a VFSS in 2022 that revealed a functional oropharyngeal swallow. Per intake
documentation yesterday, pt follows a chopped and pureed solids diet at home (unknown liquid consistency). Pt reportedly passed nursing dysphagia screening in the ED yesterday. Pt noted to have a fairly rapid progressive decline in his functional
status over the past month, per family.
Pt's present dysphagia is likely attributable to the combination of any acute conditions, his progressive physical decline associated with his metastatic cancer, and his multiple other underlying medical comorbidities. Pt and pt's family have
communicated that they wish to pursuit of hospice services.
Per documentation, pt is to be started on comfort care today and then hospice tomorrow. Skilled S[employer]IOR SALESFOR[employer] DEVELOPER services are not indicated in these cases. If pt continues to have desire to eat/drink, would consider what consistencies pt was tolerating prior to
arrival, and adjusting diet consistencies accordingly for pt's comfort feeds (i.e., consider soft bite sized solids and/or minced moist solids).
S[employer]IOR [employer]ESFORCE DEVELOPER team to sign off. Please feel free to re-consult S[employer]IOR [employer]ES[employer]CE DEVELOPER team if GOC change.
[2025-09-05] MEDS: REMOVE LIDOCAINE PATCH 2 PATCH REMOVE (19:47)
[2025-09-05 22:09] VITALS: BP 94/59
[2025-09-06] MEDS: DILAUDID 0.5 MG IV ×2 (04:33→10:18)
[2025-09-06 07:14] VITALS: BP 101/61
[2025-09-06] MEDS: NON-FORMULARY ITEM PO (07:55)
[2025-09-06] MEDS: LIDOCAINE 4% PATCH 2 PATCH TOPICAL (07:56)
--- NOTE | 2025-09-06 09:33 | W.DCSUMMARY ---
Discharge Summary
Discharge Data
Date of Admission: 09/04/25
Date of Discharge: 09/06/25
-
Pending Results: No
Hospital Course
Discharge diagnosis:
Metastatic renal cell carcinoma w/ widespread metastatic disease
Left humerus/left upper back pain
Metastatic osseous lesions
Cough with eating/swallowing pills
Acute on chronic hyponatremia
Constipation
Hypoglycemia
Poor oral intake
Chronic megaloblastic anemia
Chronic diagnosis:
Essential hypertension
Hyperlipidemia
Hypothyroidism
Consults: Hematology
Hospital course:
70-year-old male past medical history of metastatic renal cell carcinoma status post left nephrectomy with metastases to pancreas, brain status post resection/radiation and chemotherapy, possible liver mets, mets to left humerus, hyponatremia,
hypertension, hypothyroidism, diabetes, and hyperlipidemia was admitted for intractable pain and weakness. Patient was seen in conjunction with oncology, who recommended hospice. Patient and family agreed to hospice. Patient was seen in
conjunction with the hospice nurse, and initial plan was for home with hospice. However, he deteriorated during his hospital course. He was unable to eat or swallow. Family agreed to inpatient hospice. He is discharged to general inpatient
hospice.
Disposition: General Inpatient hospice
Discharge planning: Required 33 minutes
Discharge Plan
-
Patient Disposition: Hospice - Inpatient
Discharge Diagnosis/Procedures: Renal cell carcinoma with diffuse metastases
Referrals:
Renny Barajas MD [Family Provider, Internal Medicine]
Prescriptions:
No Action
atorvastatin 10 mg Tablet
10 mg PO QPM
carvedilol 3.125 mg Tablet
3.125 mg PO BID
ondansetron 8 mg Tablet,Disintegrating
8 mg PO Q8H
lisinopril 5 mg Tablet
5 mg PO BID
levothyroxine 125 mcg Tablet
125 mcg PO DAILY@06
tramadol 50 mg Tablet
25 mg PO Q6HPRN PRN (Reason: MILD pain) Qty: 12 0RF
gabapentin 300 mg Tablet
300 mg PO TID
cabozantinib 40 mg Tablet
40 mg PO DAILY
Discharge Orders:
Discharge Patient (As Directed); Ordered 09/06/25
Ordered By: Zain Barney
Discharge Date and Time
Discharge Date/Time: 09/06/25 14:22
Print Language: PERSIAN
[2025-09-06] MEDS: ROBINUL 0.2 MG IV (10:18)
--- NOTE | 2025-09-06 12:44 | CM ---
Chart reviewed. Beba Fong w/[facility] aware of pt.
== END 2025-09-06 14:22 | disposition hospice, inpatient (51) | DRG 687 ==
LOC: 2 NORTH 08:57
PROVIDERS: Emergency Medicine; Nurse Practitioner Family; Physician Assistant; ADMITTING PHYSICIAN Hospitalist; ATTENDING PHYSICIAN Family Medicine; CONSULT PHYSICIAN Internal Medicine Hematology & Oncology; EMERGENCY PHYSICIAN Emergency Medicine; FAMILY PHYSICIAN Internal Medicine
DX: C64.9 Malignant neoplasm of unspecified kidney, except renal pelvis (principal); C78.7 Secondary malignant neoplasm of liver and intrahepatic bile duct; C79.51 Secondary malignant neoplasm of bone; C78.89 Secondary malignant neoplasm of other digestive organs; E22.2 Syndrome of inappropriate secretion of antidiuretic hormone; R64 Cachexia; E03.9 Hypothyroidism, unspecified; I10 Essential (primary) hypertension; R62.7 Adult failure to thrive; D53.1 Other megaloblastic anemias, not elsewhere classified; D72.829 Elevated white blood cell count, unspecified; E11.649 Type 2 diabetes mellitus with hypoglycemia without coma; G89.3 Neoplasm related pain (acute) (chronic); K59.00 Constipation, unspecified; Z66 Do not resuscitate; E78.5 Hyperlipidemia, unspecified; Z68.22 Body mass index [BMI] 22.0-22.9, adult; Z79.890 Hormone replacement therapy; Z79.899 Other long term (current) drug therapy; Z92.3 Personal history of irradiation
CPT/HCPCS: 80048; 80053; 82962; 83735; 83935; 84300; 85025; 93005; 96374; 99285

== ENCOUNTER 2025-09-06 14:23 | Inpatient (IN) | payer OTHER, SELFPAY ==
--- NOTE | 2025-09-06 15:09 | ADM.HSP ---
Admission - Hospice
History of Present Illness
70-year-old male past medical history of metastatic renal cell carcinoma status post left nephrectomy with metastases to pancreas, brain status post resection/radiation and chemotherapy, possible liver mets, mets to left humerus, hyponatremia,
hypertension, hypothyroidism, diabetes, and hyperlipidemia who presented with intractable pain and weakness. Patient was seen in conjunction with oncology, who recommended hospice. Patient and family agreed to hospice. Patient was seen in
conjunction with the hospice nurse, and initial plan was for home with hospice. However, he deteriorated during his hospital course. He was unable to eat or swallow. Family agreed to inpatient hospice. He is admitted to general inpatient hospice.
Reason for Hospice Admission
Uncontrolled pain from his metastatic renal cell carcinoma, poor oral intake
Review of Systems
Unable to obtain full review of systems at this time due to: Acuity
Physical Exam
General: No Apparent Distress
Respiratory: Clear to Auscultation
Cardiology: Regular Rhythm
GI: Soft
Musculoskeletal: No Clubbing and No Cyanosis
Neuro: Other (Resting comfortably)
Assessment/Medication Plan
Metastatic renal cell carcinoma w/ widespread metastatic disease
Left humerus/left upper back pain
Metastatic osseous lesions
Cough with eating/swallowing pills
Acute on chronic hyponatremia
Constipation
Hypoglycemia
Poor oral intake
Chronic megaloblastic anemia
- Admit to general inpatient hospice, start IV morphine drip at step 2, IV Ativan as needed, comfort care measures only
[2025-09-06] MEDS: MORPHINE SULFATE 2 MG IV ×4 (15:31→23:06)
[2025-09-06] MEDS: MORPHINE 100 IV (15:54)
--- NOTE | 2025-09-06 15:56 | W.PN.UPDATE ---
Update Note
Progress Note Update
For billing purposes
--- NOTE | 2025-09-06 17:25 | PTCARENOTE ---
pt transitioned to inpatient hospice care today, family at bedside, Chemo medication gave to his daughter; pt reports pain 10/10 to left shoulder area and left lower back, Morphine gtt initiated. Summers for EOL placed on 2024. Emotional
support given to family and patient.
[2025-09-06 19:39] VITALS: BP 104/64
[2025-09-06] MEDS: ROBINUL 0.2 MG IV (21:29)
[2025-09-06] MEDS: ATIVAN 0.5 MG IV (21:30)
[2025-09-06] MEDS: NSS (PRESERVATIVE FREE) 0.25 ML IV (21:30)
--- NOTE | 2025-09-06 22:22 | HOSPNOTE ---
Patient admitted to inpatient hospice. Hospice will visit daily.
[2025-09-07 07:41] VITALS: BP 86/53
[2025-09-07] MEDS: MORPHINE SULFATE 4 MG IV ×3 (08:37→11:19)
[2025-09-07] MEDS: ROBINUL 0.2 MG IV (08:42)
--- NOTE | 2025-09-07 09:32 | CM ---
CM reviewed chart
Pt admitted onto [facility] hospice service
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
CM will remain available for support and planning as needed
Discharge Disposition- [facility] hospice
[2025-09-07] MEDS: ATIVAN 0.5 MG IV (10:08)
[2025-09-07] MEDS: NSS (PRESERVATIVE FREE) 0.25 ML IV (10:09)
--- NOTE | 2025-09-07 10:21 | CHAP ---
Addendum entered by Ivette Collins 09/07/25 11:30:
Fr. Marley on his way to provide Sacrament of the Sick/Last Rites as requested.
Original Note:
Informatics Coordinator request relayed to Fr. Marley, on-call towel sorter today. Awaiting return call.
--- NOTE | 2025-09-07 10:38 | HOSPNOTE ---
production wood craftsman visited patient in room 2131 and on entrance to the room, hospice nurse and floor nurse were attending patient needs. Daughter and son in law was there and production wood craftsman went to greet them and introduce self. Patient is a 70 year old male with
renal carcinoma with metastasis. Family reports he is in no pain today. Sales Apprentice provided emotional support to the family as family was emotionally broken and really having problems coping. Patient was sick for a long time and suddenly declined.
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 patient lived with daughter since his had . patient and first were but she has been helping with his care. Daughter is going
through a lot of emotional turmoil because her and the patient did not have a good relationship for many years and she was angry with him. Family asked for the Sacrament of Last Rights and production wood craftsman called the pastoral care office in the hospital and
a clear coat sprayer is on the way. Sales Apprentice provided pastoral counseling to the family and advised them of bereavement support that will be available through the Hospice program. Sales Apprentice provided emotional and spiritual support through presence, touch and
prayer as well as active listening. Family instructed to call the Hospice office if they would like production wood craftsman services again.
--- NOTE | 2025-09-07 11:40 | W.PN.HOSP.TC ---
Today's Communication/Plan
-
Assessment / Plan
Assessment / Plan
Metastatic renal cell carcinoma with widespread metastatic disease (End stage condition)
Left humerus/back pain secondary to metastatic osseous lesions
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
Failure to thrive in adult
Continue morphine drip
Continue high Cosamin
Continue glycopyrrolate
Continue Compazine
Provide dignity and hygiene
Anticipated Discharge: > 48 hours
Subjective/Interval History
-
Date of Service: September 07, 2025
Seen and examined. Family at bedside. On morphine drip.
Objective Data
-
Vital Signs:
Vital Signs
Temp Pulse Resp BP Pulse Ox
99.5 F 88 16 86/53 70
09/07/25 07:41 09/07/25 07:41 09/07/25 07:41 09/07/25 07:41 09/07/25 07:41
I&O
09/06/25 09/07/25 09/08/25
06:59 06:59 06:59
Output Total 250 / 250
Balance -250 / -250
Physical Exam
-
General: Appears Chronically Ill and Cachectic
HEENT: Atraumatic
Psych: Other (sedated)
--- NOTE | 2025-09-07 13:18 | W.PN.DEATH ---
Pronouncement of
-
Called to see patient to pronounce.
No spontaneous heart tones or respirations noted.
Patient not responsive to verbal stimuli.
Patient is pronounced .
Time of : 12:30
Date of : 09/07/25
Family Notified: Yes
--- NOTE | 2025-09-07 13:18 | W.DCSUMMARY ---
Discharge Summary
Discharge Data
Date of Admission: 09/06/25
Date of Discharge: 09/07/25
-
Pending Results: No
Hospital Course
70-year-old male past medical history of metastatic renal cell carcinoma status post left nephrectomy with metastases to pancreas, brain status post resection/radiation and chemotherapy, possible liver mets, mets to left humerus, hyponatremia,
hypertension, hypothyroidism, diabetes, and hyperlipidemia who presented with intractable pain and weakness. Patient was seen in conjunction with oncology, who recommended hospice. Patient and family agreed to hospice. Patient was seen in
conjunction with the hospice nurse, and initial plan was for home with hospice. However, he deteriorated during his hospital course. He was unable to eat or swallow. Family agreed to inpatient hospice. He is admitted to general inpatient hospice.
on 09/07/2025 at 1230
Discharge Plan
-
Referrals:
UNKNOWN - PT NOT,INTERVIEWE [Family Provider]
Prescriptions:
No Action
atorvastatin 10 mg Tablet
10 mg PO QPM
carvedilol 3.125 mg Tablet
3.125 mg PO BID
ondansetron 8 mg Tablet,Disintegrating
8 mg PO Q8H
lisinopril 5 mg Tablet
5 mg PO BID
levothyroxine 125 mcg Tablet
125 mcg PO DAILY@06
tramadol 50 mg Tablet
25 mg PO Q6HPRN PRN (Reason: MILD pain) Qty: 12 0RF
gabapentin 300 mg Tablet
300 mg PO TID
cabozantinib 40 mg Tablet
40 mg PO DAILY
Discharge Date and Time
Print Language: MALTESE
== END 2025-09-07 12:30 | disposition expired | DRG 951 ==
LOC: 2 NORTH 14:23
PROVIDERS: ADMITTING PHYSICIAN Family Medicine; ATTENDING PHYSICIAN Hospitalist
DX: Z51.5 Encounter for palliative care (principal); C64.9 Malignant neoplasm of unspecified kidney, except renal pelvis; C78.89 Secondary malignant neoplasm of other digestive organs; C79.51 Secondary malignant neoplasm of bone; Z90.5 Acquired absence of kidney